=== PATIENT | male | born 1950 | race Caucasian/White ===

== ENCOUNTER → 2019-09-30 07:17 | Outpatient (CLI) | payer OTHER, SELFPAY ==
[2019-09-30 07:55] LABS: Add Manual Diff / Slide Review NO; Basophils Absolute Auto 0 /uL (0-100); Basophils Percent Auto 0.8 % (0-2); Eosinophils Absolute Auto 200 /uL (0-450); Hematocrit 46.7 % (41-53); Lymphocytes Absolute Auto 1600 /uL (1100-4500); Lymphocytes Percent Auto 28.1 % (25-40); Mean Corpuscular HGB Conc 34.4 % (30-36); Mean Corpuscular Hemoglobin 33.3 PG (26-34); Mean Corpuscular Volume 96.9 fL (80-100); Monocytes Absolute Auto 500 /uL (0-900); Monocytes Percent Auto 9.1 % (3-14); Neutrophils Absolute Auto 3400 /uL (1500-7000); Platelet Count 313 X10^3/uL (150-400); Red Blood Cell Count 4.82 X10^6/uL (4.5-5.9); Red Cell Distribution Width 13.4 % (11.6-14.8); White Blood Cell Count 5.8 X10^3/uL (4.5-11.0)
[2019-09-30 08:13] LABS: Alanine Aminotransferase 17 IU/L (<50); Albumin 4.3 g/dL (3.5-5.0); Albumin Globulin Ratio 1.5 (1.0-2.8); Alkaline Phosphatase 66 U/L (38-126); Aspartate Aminotransferase 25 IU/L (17-59); BUN Creatinine Ratio 15.7 (6-22); Bilirubin Total 1.4 mg/dL (0.2-1.3); Blood Urea Nitrogen 11 mg/dL (9-20); Calcium 9.3 mg/dL (8.4-10.2); Carbon Dioxide 30 mmol/L (22-32); Chloride 101 mmol/L (98-107); Cholesterol 184 mg/dL (140-199); Estimated Glomerular Filt Rate > 60.0 mL/min (>60); Globulin 2.8 g/dL (1.7-4.1); Glucose 111 mg/dL (80-110); HDL Cholesterol 49 mg/dL (40-60); HEMOLYSIS < 15 (0-50); LDL Cholesterol Calculated 116 mg/dL (<100); Sodium 140 mmol/L (137-145); Total Protein 7.1 g/dL (6.3-8.2); Triglycerides 96 mg/dL (35-150)
[2019-10-02 17:16] LABS: PSA Free % 8 % (calc) (> 25); PSA, Total 10.5 ng/mL (< 4.1)
== END ==
PROVIDERS: PCP Family Medicine; Visit Provider Family Medicine
DX: G62.9 Polyneuropathy, unspecified (principal)
CPT/HCPCS: 36415; 80053; 80061; 84153; 84154; 85025

== ENCOUNTER → 2020-09-05 07:31 | Outpatient (CLI) | payer MEDICARE, SELFPAY ==
[2020-09-05 08:52] LABS: Add Manual Diff / Slide Review NO; Basophils Absolute Auto 100 /uL (0-100); Basophils Percent Auto 0.8 % (0-2); Eosinophils Absolute Auto 100 /uL (0-450); Eosinophils Percent Auto 2.3 % (2-4); Hematocrit 51.2 % (41-53); Hemoglobin 17.1 g/dL (13.5-17.5); Lymphocytes Absolute Auto 1800 /uL (1100-4500); Lymphocytes Percent Auto 29.1 % (25-40); Mean Corpuscular HGB Conc 33.5 % (30-36); Mean Corpuscular Hemoglobin 32.2 PG (26-34); Monocytes Absolute Auto 500 /uL (0-900); Neutrophils Absolute Auto 3500 /uL (1500-7000); Neutrophils Percent Auto 58.8 % (50-75); Platelet Count 302 X10^3/uL (150-400); Red Blood Cell Count 5.33 X10^6/uL (4.5-5.9); Red Cell Distribution Width 12.8 % (11.6-14.8)
[2020-09-05 09:18] LABS: Alanine Aminotransferase 18 IU/L (<50); Albumin 4.3 g/dL (3.5-5.0); Albumin Globulin Ratio 1.4 (1.0-2.8); Alkaline Phosphatase 71 U/L (38-126); Aspartate Aminotransferase 26 IU/L (17-59); BUN Creatinine Ratio 16.9 (6-22); Bilirubin Total 1.7 mg/dL (0.2-1.3); Blood Urea Nitrogen 12 mg/dL (9-20); Calcium 9.8 mg/dL (8.4-10.2); Carbon Dioxide 34 mmol/L (22-32); Chloride 99 mmol/L (98-107); Cholesterol 189 mg/dL (140-199); Estimated Glomerular Filt Rate > 60.0 mL/min (>60); Glucose 96 mg/dL (80-110); HDL Cholesterol 53 mg/dL (40-60); HEMOLYSIS < 15 (0-50); LDL Cholesterol Calculated 120 mg/dL (<100); Potassium 4.2 mmol/L (3.4-5.1); Sodium 136 mmol/L (137-145); Total Protein 7.3 g/dL (6.3-8.2); Triglycerides 82 mg/dL (35-150)
--- NOTE | 2020-09-05 10:54 | DI.US.S_ITS ---
PROCEDURE: US ABDOMEN COMPLETE INDICATIONS: Abdominal pain TECHNIQUE: Real-time scanning was performed of the abdominal and retroperitoneal organs, with image documentation. COMPARISON: None. FINDINGS: Liver: Liver is normal in size and homogeneous in echotexture. Gallbladder: The gallbladder contains mobile presumed sludge balls, given absence of dense shadowing, best seen in the left lateral decubitus positioning and the largest of which measures 6 x 7 x 7 mm. Biliary ducts: Intrahepatic bile ducts are non-dilated. Extrahepatic bile duct caliber measures 4.9 mm. Normal is 6-7 mm or less in diameter, or 10 mm or less post-cholecystectomy. Pancreas: Visualized portions of the pancreas are sonographically normal. Spleen: Spleen is normal in size and homogeneous in echotexture. Kidneys: Kidneys are normal in size and echotexture. Right kidney measures 13.6 cm long; left kidney measures 11.5 cm long. No hydronephrosis or nephrolithiasis. No solid masses. Duplex right kidney collecting system. Aorta: Visualized aorta is normal in caliber at less than 3 cm. Iliacs: Proximal common iliac arteries are normal in caliber at less than 2.5 cm. IVC: Intrahepatic inferior vena cava is patent. Miscellaneous: No free abdominal fluid. IMPRESSION: Mobile presumed sludge balls within the gallbladder lumen, without evidence of acute cholecystitis or biliary obstruction. No alternative source of abdominal pain is identified. Dictated by: Gulshan Silva M.D. on 09/05/2020 at 11:46 Approved by: Gulshan Silva M.D. on 09/05/2020 at 11:48
[2020-09-06 07:08] LABS: PSA Free % 8.5 % (.); PSA, Total 8.2 ng/mL (0.0-4.0)
[2020-09-13 11:33] LABS: Urea Breath Test >18YRS NEGATIVE
== END ==
PROVIDERS: PCP Family Medicine; Referring Provider Family Medicine; Visit Provider Family Medicine
DX: R10.9 Unspecified abdominal pain (principal)
CPT/HCPCS: 36415; 76700; 80053; 80061; 83013; 84153; 84154; 85025

== ENCOUNTER → 2020-09-18 12:31 | Outpatient (CLI) | payer MEDICARE, SELFPAY ==
--- NOTE | 2020-09-18 12:33 | DI.MRI.S_ITS ---
PROCEDURE: MR PELIS WO/W CON INDICATIONS: Enlarged prostate TECHNIQUE: Coronal HASTE, axial T1 FSE with fat saturation, 3-plane nonbreath-hold T2 FSE. After the administration of contrast, dynamic axial, delayed axial and coronal VIBE or 2-D FLASH with fat saturation through the pelvis. Optional diffusion weighted imaging and ADC may be performed. COMPARISON: None. FINDINGS: Image quality: Diagnostic. Prostate: Gland size is 5.8 x 5.5 x 5.8 cm; ellipsoid gland volume is 96 mL. There is heterogeneous enlargement of the transitional zone. Multiple circumscribed nodules are demonstrated within the transitional zone compatible with BPH nodules. Lesion size(s): Lesion 1: Approximately 0.8 x 0.6 cm in the axial plane. Lesion location(s) (sector): Lesion 1: Right mid transitional zone at the level of the mid prostate. Lesion description: Lesion 1: There is an oval T2 hypointense lesion with indistinct and obscured margins. No evidence of extraprostatic extension. T2 weighted imaging (T2WI) morphology score: Lesion 1: 4 Diffusion weighted imaging (DWI) morphology score: Lesion 1: 3 Dynamic contrast enhancement (DCE): Lesion 1: Present. Lesion PI-RADS score: Lesion 1: PI-RADS 4 Genitourinary system: There is mild bladder wall thickening and trabeculation compatible sequelae of chronic bladder outlet obstruction. Distal ureters are non distended. Bowel and peritoneum: No pathologic free pelvic fluid. Inferior colon and small bowel loops are normal in caliber. There is colonic diverticulosis without acute diverticulitis demonstrated. Nodes and vessels: No pelvic or inguinal adenopathy by size criteria. Iliac vessels are normal in caliber. Soft tissues: No inguinal hernias. Bones: Marrow demonstrates normal overall signal, without suspicious lesions to suggest metastases. IMPRESSION: 1. Small PI-RADS 4 lesion demonstrated within the right transitional zone compatible with high likelihood of clinically significant prostate cancer. 2. No evidence of extraprostatic extension. No pelvic lymphadenopathy. Dictated by: Dixon Baig M.D. on 09/18/2020 at 16:57 Approved by: Dixon Baig M.D. on 09/18/2020 at 17:07
== END ==
PROVIDERS: PCP Family Medicine; Referring Provider Family Medicine; Visit Provider Family Medicine
DX: N40.1 Benign prostatic hyperplasia with lower urinary tract symptoms (principal); N13.8 Other obstructive and reflux uropathy; N32.89 Other specified disorders of bladder
CPT/HCPCS: 72197

== ENCOUNTER → 2021-10-24 09:47 | Outpatient (CLI) | payer MEDICARE, SELFPAY ==
[2021-10-24 11:18] LABS: COVID19 -Nasal RAPID Negative (Negative)
== END ==
PROVIDERS: PCP Internal Medicine; Visit Provider Surgery
DX: Z01.812 Encounter for preprocedural laboratory examination (principal); Z20.822 Contact with and (suspected) exposure to COVID-19
CPT/HCPCS: 87635; C9803

== ENCOUNTER 2021-10-25 07:39 | Day surgery (SDC) | payer MEDICARE, SELFPAY ==
[2021-10-25 07:57] VITALS: BP 148/96; PULSE 81; RESP 16; TEMP 37; O2SAT 98; BMI 22.9
[2021-10-25] MEDS: LACTATED RINGERS 1,000 ML 84 ML IV (08:17)
--- NOTE | 2021-10-25 08:35 | PM.HP.1 ---
History of Present Illness History of Present Illness Date Patient Seen: 10/25/21 Time Patient Seen: 08:35 Chief complaint: TNC Narrative: Zach had a colonoscopy in 2014 with removal of a few polyps. Was recommended to follow-up in 5 years. Patient History Medical History (Updated 01/30/21 @ 10:46 by Jose Maria Mckinley MD) Benign prostatic hyperplasia with urinary obstruction (05/21/16) Elevated PSA GERD without esophagitis H/O adenomatous polyp of colon Mass of left breast (08/10/14) Peripheral neuropathy (08/10/14) Seborrheic keratosis Surgical History (Updated 02/20/21 @ 20:47 by Migdalia Gomez) History of hernia repair (~1967) Family & Social History Family History (Updated 02/20/21 @ 20:48 by Migdalia Gomez) Brother Prostate cancer Father Brain tumor Social History: household members significant other Tobacco & Substance use: Smoking Status Never smoker alcohol intake current Substance Use Type does not use Meds Home Medications and Allergies Home Medications Medication Instructions Recorded Confirmed Type [VITAMIN C] Q DAY #0 11/19/11 01/30/21 History [VITAMIN E] QDAY #0 11/19/11 01/30/21 History lycopene 10 mg capsule 10 mg PO DAILY #90 cap 09/04/20 01/30/21 Rx tamsulosin 0.4 mg capsule 0.4 mg PO DAILY #90 cap 10/03/21 Rx Allergies Allergy/AdvReac Type Severity Reaction Status Date / Time No Known Drug Allergies Allergy Verified 10/25/21 07:55 Exam Vital Signs (past 8 hours): - 10/25/21 07:57 Temperature 98.6 F Pulse Rate 81 Respiratory Rate 16 Blood Pressure 148/96 H Pulse Oximetry 98 Oxygen Delivery Method Room Air Const General: healthy appearing Resp Effort & Inspection: normal respiratory effort Assessment & Plan Assessment and plan (1) H/O adenomatous polyp of colon: Status: Inactive Plan Colonoscopy risks and benefits reviewed. He would like to proceed COVID-19 COVID-19 status: Negative Result date/Date tested (Pos, Neg/Pending): 10/24/21 Time Spent With Patient Critical Care time: I spent a total of [] minutes of critical care time on this patient's care today; this time is exclusive of procedural time.
[2021-10-25] MEDS: fentaNYL 250 MCG/5 ML INJ IV (09:13)
[2021-10-25] MEDS: MIDAZOLAM 5 MG/5 ML VIAL IV (09:14)
--- NOTE | 2021-10-25 09:16 | PM.OP.COLON ---
Operative Date/Time/Diagnoses Date of procedure: 10/25/21 Time of procedure: 09:16 Pre-op diagnosis: History of colon polyps Post-op diagnosis: same Procedure & Clinicians Study performed: Colonoscopy Same procedure as scheduled: Yes Indications: History of colon polyps Surgeon: Keith Mcgill Procedure Notes SCOAP/Timeout: Yes Procedure in detail: Procedure: The patient was brought to the endoscopy suite, placed in left lateral decubitus position. The patient was connected to monitoring devices. A time-out was performed. Sedation was administered. Once the patient was adequately sedated, a digital rectal exam was performed and was normal. The scope was then inserted and advanced to the cecum where the appendiceal orifice was identified and photographed. The scope was then slowly withdrawn over greater than 6 minutes. Mucosa was thoroughly inspected. No polyps were noted. The scope was retroflexed in the rectum and no abnormalities were noted. The was straightened and removed. The patient was awakened and brought to recovery. Versed: 6 mg Fentanyl: 100 mcg EBL: 0 Findings: No polyps Scope withdrawal time: 9 Sedation minutes: 27 Post-procedure Recommendations: Colonoscopy in 10 years Disposition: PACU
[2021-10-25 09:19] VITALS: BP 124/84; PULSE 62; RESP 12; TEMP 36.4; O2SAT 95
[2021-10-25 09:24] VITALS: BP 120/79; PULSE 58; RESP 12; O2SAT 95
[2021-10-25 09:29] VITALS: BP 120/80; PULSE 558; RESP 14; O2SAT 95
[2021-10-25 09:34] VITALS: BP 153/88; PULSE 66; RESP 12; TEMP 36.4; O2SAT 96
[2021-10-25 09:40] VITALS: BP 144/92; PULSE 63; RESP 16; TEMP 36.9; O2SAT 95
== END 2021-10-25 09:53 | disposition home or self-care (01) ==
PROVIDERS: PCP Internal Medicine; Referring Provider Surgery; Visit Provider Surgery
PROC: 0DJD8ZZ Inspection of Lower Intestinal Tract, Via Natural or Artificial Opening Endoscopic (ICD-10-PCS; CPT 45378; principal; 2021-10-25 08:30)
DX: Z12.11 Encounter for screening for malignant neoplasm of colon (principal); Z86.010 Personal history of colon polyps
CPT/HCPCS: G0105; 99152; J2250; J3010

== ENCOUNTER → 2022-04-16 11:10 | Outpatient (CLI) | payer MEDICARE, SELFPAY ==
--- NOTE | 2022-04-16 11:13 | DI.RAD.S_ITS ---
PROCEDURE: XR FOREARM LT 2V INDICATIONS: fall TECHNIQUE: 2 views of the forearm were acquired. COMPARISON: None. FINDINGS: Bones: Comminuted distal radial metaphyseal fracture with intra-articular extension and dorsal angulation noted. Normal bone mineralization present. Ulna appears intact. Soft tissues: No suspicious soft tissue calcifications or masses. IMPRESSION: Comminuted intra-articular distal radial fracture with dorsal angulation Approved by: Jf Arroyo M.D. on 04/16/2022 at 11:14
--- NOTE | 2022-04-16 11:13 | DI.RAD.S_ITS ---
PROCEDURE: XR WRIST LT MIN 3V INDICATIONS: fall TECHNIQUE: 4 views of the wrist were acquired. COMPARISON: None. FINDINGS: Bones: Comminuted distal radial metaphyseal fracture is present with extension into the radiocarpal joint space. With dorsal angulation of distal fracture fragment noted. Scaphoid view is unremarkable Soft tissues: No suspicious soft tissue calcifications. IMPRESSION: 1. Comminuted intra-articular distal radial fracture with dorsal angulation Approved by: Jf Arroyo M.D. on 04/16/2022 at 11:18
== END ==
PROVIDERS: PCP Internal Medicine; Referring Provider Nurse Practitioner Family; Visit Provider Nurse Practitioner Family
DX: M25.432 Effusion, left wrist; S52.572A Other intraarticular fracture of lower end of left radius, initial encounter for closed fracture; M79.89 Other specified soft tissue disorders; W19.XXXA Unspecified fall, initial encounter
CPT/HCPCS: 73090; 73110

== ENCOUNTER 2022-04-16 15:26 | Emergency (ER) | payer MEDICARE, SELFPAY ==
[2022-04-16 16:01] VITALS: BP 161/74; PULSE 70; RESP 16; TEMP 36.6; O2SAT 98; BMI 22.9
[2022-04-16] MEDS: ACETAMINOPHEN 325 MG TABLET 975 MG PO (17:25)
--- NOTE | 2022-04-16 17:42 | DI.RAD.S_ITS ---
PROCEDURE: XR WRIST LT 2V INDICATIONS: post reduction film, colles' fx TECHNIQUE: 2 views of the wrist were acquired. COMPARISON: [facility], CR, XR WRIST LT MIN 3V, 04/16/2022, 11:12. FINDINGS: Bones: Fiberglass splint is present, which obscures fine bony detail. Comminuted intra-articular distal radial fracture is redemonstrated with mildly improved alignment. There is residual dorsal tilting of the distal radial articular surface. A mildly displaced ulnar styloid tip fracture is also seen. Soft tissues: No suspicious soft tissue calcifications. IMPRESSION: Status post reduction of the comminuted intra-articular distal radial fracture with improved alignment. Mildly displaced ulnar styloid tip fracture redemonstrated Dictated by: Jose Roberto Haley M.D. on 04/16/2022 at 18:02 Approved by: Jose Roberto Haley M.D. on 04/16/2022 at 18:04
--- NOTE | 2022-04-16 17:43 | ED_ITS ---
HPI - Extremity Injury (Upper) <ARUNA Graham - Last Filed: 04/16/22 19:05> General Chief Complaint: Extremity Injury, Upper Stated Complaint: sent by MD for change of cast on left arm Time Seen by Provider: 04/16/22 15:49 Mode of arrival: Family Vehicle History of Present Illness HPI narrative: This is a 72-year-old male who presents to the emergency department after a fall last night with injury to his left wrist. Patient reports that he went to the walk-in clinic, they called and sent him to the emergency department after consultation Orthopedics for his closed left distal radial fracture with dorsal angulation. Dr. Reyes was consulted by the walk-in clinic who recommends patient go to the emergency department for reduction of his Colles fracture and follow-up in the orthopedic clinic in one week. Patient denies any new sensation changes, has full range of motion of his fingers, complains of wrist pain and swelling, states that he took Tylenol earlier for his pain, declined wanting anything stronger at this time. Related Data Home Medications Medication Instructions Recorded Confirmed [VITAMIN C] Q DAY ##0 11/19/11 04/16/22 [VITAMIN E] QDAY ##0 11/19/11 04/16/22 Previous Rx's Medication Instructions Recorded lycopene 10 mg capsule 10 mg PO DAILY #90 caps 09/04/20 tamsulosin 0.4 mg capsule 0.4 mg PO DAILY #90 caps 01/14/22 Allergies Allergy/AdvReac Type Severity Reaction Status Date / Time No Known Drug Allergies Allergy Verified 04/16/22 16:04 Review of Systems <ARUNA Graham - Last Filed: 04/16/22 19:05> Review of Systems Narrative: General: denies fever, chills Head/Neck: denies headache, neck pain Eyes: denies visual changes, eye pain Cardio: denies chest pain, palpitations Respiratory: denies shortness of breath, cough MSK: Endorses fall with wrist fracture happened last night, he endorses pain and swelling but denies any numbness or tingling, worsening pain Skin: denies rash, itching or wound Neuro: denies numbness, tingling, dizziness Patient History <ARUNA Graham - Last Filed: 04/16/22 19:05> Medical History Benign prostatic hyperplasia with urinary obstruction (05/21/16) Elevated PSA GERD without esophagitis H/O adenomatous polyp of colon Mass of left breast (08/10/14) Peripheral neuropathy (08/10/14) Seborrheic keratosis Surgical History History of hernia repair (~1968) Family History Brother Prostate cancer Father Brain tumor Social History household members: significant other Smoking Status: Never smoker alcohol intake: current Smoking Status: Never smoker Substance Use Type: does not use Exam <ARUNA Graham - Last Filed: 04/16/22 19:05> Narrative Exam Narrative: Independently reviewed vitals signs and nursing notes. General: Awake, alert, nontoxic, no cardiorespiratory distress Head/Neck: Atraumatic, neck supple Eyes: EOMI, conjunctiva normal Nose: nares patent, no rhinorrhea Mouth/Throat: moist mucus membranes, posterior pharynx without erythema or lesion Cardio: Regular rate and rhythm, no peripheral edema MSK: Moves all extremities, neurovascularly intact, range of motion without deficit, left arm in splint, this was removed, obvious deformity of his left wrist with dorsal angulation. Moderate amount of swelling, radial pulse is palpable, 2+, brisk cap refill Skin: Normal capillary refill, no rash Neuro: Normal speech and cognition, normal gait Initial Vital Signs Initial Vital Signs: Vital Signs Temperature 97.8 F 04/16/22 16:01 Pulse Rate 70 04/16/22 16:01 Respiratory Rate 16 04/16/22 16:01 Blood Pressure 161/74 H 04/16/22 16:01 Pulse Oximetry 98 04/16/22 16:01 Oxygen Delivery Method 04/16/22 16:01 <Tessa Caldwell DO - Last Filed: 04/18/22 13:10> Initial Vital Signs Initial Vital Signs: Vital Signs Temperature 97.8 F 04/16/22 16:01 Pulse Rate 70 04/16/22 16:01 Respiratory Rate 16 04/16/22 16:01 Blood Pressure 161/74 H 04/16/22 16:01 Pulse Oximetry 98 04/16/22 16:01 Oxygen Delivery Method 04/16/22 16:01 Procedures <ARUNA Graham - Last Filed: 04/16/22 19:05> Orthopedic Joint Reduction Joint #1: Time Out Performed: Yes Side: left Joint Reduction Location: wrist Analgesia: hematoma block Local Anesthesia: lidocaine 2% Amount of anesthesic used (mL): 10 Technique used: traction/counter-traction Post-reduction neuro exam: intact and no change Post-reduction vascular: intact and no change Post Reduction X-Ray Obtained: Yes Post Reduction X-Ray Results: reduced Splint Applied: Yes Patient Tolerated Procedure: Well Orthopedic Splinting/Casting Injury #1: Side: left Upper Extremity Injury Location: wrist Upper Extremity Immobilizer: sling/shoulder immobilizer and sugar tong splint Post splinting neuro exam: intact and no change Post splinting vascular exam: intact Placed by: Provider Course <ARUNA Graham - Last Filed: 04/16/22 19:05> Orders Ordered: Discontinued Medications Acetaminophen (Acetaminophen 325 Mg Tablet) 975 mg PO NOW ONE Stop: 04/16/22 17:18 Last Admin: 04/16/22 17:25 Dose: 975 mg Documented By: SUE Ibuprofen (Ibuprofen 400 Mg Tablet) 600 mg PO NOW ONE Stop: 04/16/22 17:44 Last Admin: 04/16/22 17:46 Dose: 600 mg Documented By: SUE Lidocaine HCl (Lidocaine 1% (Pf)) 8 ml INJ NOW ONE Stop: 04/16/22 17:03 Last Admin: 04/16/22 17:48 Dose: 8 ml Documented By: SUE Oxycodone/Acetaminophen (Oxycodone/Acetaminophen 5/325 Tablet) 1 tab PO NOW ONE Stop: 04/16/22 15:50 Last Admin: 04/16/22 16:36 Dose: Not Given Documented By: SUE Vital Signs Vital signs: Vital Signs - 8 hr 04/16/22 16:01 Temperature 97.8 F Pulse Rate 70 Respiratory Rate 16 Blood Pressure 161/74 H Pulse Oximetry 98 Oxygen Delivery Method Room Air <Tessa Caldwell DO - Last Filed: 04/18/22 13:10> Orders Ordered: Discontinued Medications Acetaminophen (Acetaminophen 325 Mg Tablet) 975 mg PO NOW ONE Stop: 04/16/22 17:18 Last Admin: 04/16/22 17:25 Dose: 975 mg Documented By: MLM Ibuprofen (Ibuprofen 400 Mg Tablet) 600 mg PO NOW ONE Stop: 04/16/22 17:44 Last Admin: 04/16/22 17:46 Dose: 600 mg Documented By: MLM Lidocaine HCl (Lidocaine 1% (Pf)) 8 ml INJ NOW ONE Stop: 04/16/22 17:03 Last Admin: 04/16/22 17:48 Dose: 8 ml Documented By: MLM Oxycodone/Acetaminophen (Oxycodone/Acetaminophen 5/325 Tablet) 1 tab PO NOW ONE Stop: 04/16/22 15:50 Last Admin: 04/16/22 16:36 Dose: Not Given Documented By: MLGaviota Vital Signs Vital signs: Vital Signs - 8 hr 04/16/22 16:01 Temperature 97.8 F Pulse Rate 70 Respiratory Rate 16 Blood Pressure 161/74 H Pulse Oximetry 98 Oxygen Delivery Method Room Air MDM - Extremity Injury (Upper) <Vanessa Mendez [facility] - Last Filed: 04/16/22 19:05> Imaging Data Post reduction lt wrist xr: Radiologist's Impression: PROCEDURE:? XR WRIST LT 2V ? INDICATIONS: post reduction film, katia' fx ? TECHNIQUE:? 2 views of the wrist were acquired.? ? COMPARISON:? [facility], CR, XR WRIST LT MIN 3V, 04/16/2022, 11:12. ? FINDINGS:? ? Bones:? Fiberglass splint is present, which obscures fine bony detail.? Comminuted intra-articular distal radial fracture is redemonstrated with mildly improved alignment.? There is residual dorsal tilting of the distal radial articular surface.? A mildly displaced ulnar styloid tip fracture is also seen. ? Soft tissues:? No suspicious soft tissue calcifications.? ? IMPRESSION:? Status post reduction of the comminuted intra-articular distal radial fracture with improved alignment.? Mildly displaced ulnar styloid tip fracture redemonstrated ? ? Dictated by: Jose Roberto Haley M.D. on 04/16/2022 at 18:02 ? ? Approved by: Jose Roberto Haley M.D. on 04/16/2022 at 18:04 ? Lt wrist : Radiologist's Impression: PROCEDURE:? XR WRIST LT MIN 3V ? INDICATIONS: fall ? TECHNIQUE:? 4 views of the wrist were acquired.? ? COMPARISON:? None. ? FINDINGS:? ? Bones:? Comminuted distal radial metaphyseal fracture is present with extension into the radiocarpal joint space.? With dorsal angulation of distal fracture fragment noted.? Scaphoid view is unremarkable ? Soft tissues:? No suspicious soft tissue calcifications.? ? IMPRESSION:? ? 1. Comminuted intra-articular distal radial fracture with dorsal angulation ? ? ? Approved by: Jf Arroyo M.D. on 04/16/2022 at 11:18? MDM Narrative Medical decision making narrative: This is a right-handed 72-year-old male who presents to the emergency department after he was called by the walk-in clinic provider after he was seen in the walk-in clinic and discharged home with a closed, neurovascularly intact, comm inuted intra-articular distal radial fracture with dorsal angulation with an associated styloid fracture his left ulna. Dr. Reyes was consulted by the walk-in clinic provider who recommends patient come back to the emergency department for fracture reduction and splinting and patient can follow-up in them clinic next week. Patient has full sensation and range of motion of his fingertips, radial pulses 2+ and palpable, ecchymosis and edema present over his wrist. A referral for Dr. Reyes was placed. A hematoma block was performed by Dr. Caldwell and fracture reduction was also completed by her with my assistance. Post reduction film is attached, shows post reduction of the comminuted intra-articular distal radial fracture with improved alignment and a mildly displaced ulnar styloid tip fracture is redemonstrated. His pain was under control with Tylenol. He was splinted with 4 in ortho glass in in a stirrup splint and placed in a sling, adequate padding was used over the wrist and elbow. Patient is encouraged to continue to elevate, ice, take ibuprofen and Tylenol as needed for his pain, he was given strict return precautions for any sensation changes, pain out of proportion or other concerning symptoms. He understands to follow-up in one week with Orthopedics. Patient is appropriate and amenable to discharge home. Vital signs are stable on repeat examination is unremarkable. Patient has been informed of results. Patient has been given strict return to ER precautions for any new or worsening symptoms. Patient understands to follow up closely with outpatient providers as instructed. Patient understands plan and agrees to discharge home. All questions and concerns answered at this time. Discharge Plan Departure Patient Disposition: Home Clinical Impression: Colles' fracture Qualifiers: Encounter type: initial encounter Fracture type: closed Laterality: left Qualified Code(s): S52.532A - Colles' fracture of left radius, initial encounter for closed fracture Instructions: DI for Distal Radius Fracture Activity Restrictions/Additional Instructions: *You have been diagnosed with a left distal radius fracture, also called a Colles' fracture. Please use ice over the painful area 20 minutes, three or 4 times daily, keep it elevated, take ibuprofen and/or Tylenol as needed for your pain. Follow-up with Dr. Reyes or other orthopedist in one week. They might call you or you can call them and schedule an appointment tomorrow morning. Please use your sling to help support your arm because it is heavier than it used to be. Please return to the emergency department if your pain becomes unbearable, if your fingers are numb and tingly, or if you have other new pain that you do not have today. Your fracture angulation is much improved after it was reduced today, I hope you heal quickly and feel better soon. *What to do: *Please continue to take your regular medications as directed. [ ] New medication prescriptions sent to your pharmacy: [ ] [ ] New medication written as a paper prescription [x] No new medications given *Please follow up with your primary care provider in 2-3 days, call for an appointment. Let them know you were seen in the Emergency Department and that we asked that you be seen for follow-up. We will electronically transmit a record of today's note if your PCP is in our system *If you do not have a primary care provider please contact [phone] to establish care with one of the [facility] primary care providers. *Return to Emergency Department if you should have any new, worsening or concerning symptoms, such as [fever greater than 101F, chills, worsening pain, persistent vomiting or other bothersome symptoms] Prescriptions: No Action [VITAMIN C] Q DAY Qty: 0 [VITAMIN E] QDAY Qty: 0 tamsulosin 0.4 mg capsule 0.4 mg PO DAILY Qty: 90 0RF Rx Instructions: APPT DUE W/PCP PRIOR TO END OF THIS RX/FUTURE FILLS. PLEASE CALL TO SCHEDULE APPT. THANKS 01/14/22 lycopene 10 mg capsule 10 mg PO DAILY Qty: 90 3RF Referrals: Reyna Herr MD [Physician] - Jose Maria Mckinley MD [Primary Care Provider] - Visit Report Forms: Patient Portal/API <Tessa Caldwell DO - Last Filed: 04/18/22 13:10> Cosign ED Attending Meaghanature Attestation: I was immediately available in the department for consultation. Documentation has been reviewed. I agree with assessment and plan.
[2022-04-16] MEDS: IBUPROFEN 400 MG TABLET 600 MG PO (17:46)
[2022-04-16] MEDS: LIDOCAINE 1% (PF) 8 ML INJ (17:48)
--- NOTE | 2022-04-16 18:13 | PC.NURSE ---
After splint was placed pt had some delayed cap refill and numbness to fingers. Hugo wrap on splint was loosened and re wrapped. Pt has feeling and good color in his fingers post rewrap.
== END 2022-04-16 18:21 | disposition home or self-care (01) ==
PROVIDERS: Emergency Provider Nurse Practitioner Critical Care Medicine; PCP Internal Medicine; Referring Provider Orthopaedic Surgery Foot and Ankle Surgery
DX: S52.532A Colles' fracture of left radius, initial encounter for closed fracture (principal); W19.XXXA Unspecified fall, initial encounter; M25.432 Effusion, left wrist; M79.89 Other specified soft tissue disorders
CPT/HCPCS: 25605; 29105; 73090; 73100; 73110; 99284

== ENCOUNTER → 2024-04-07 14:34 | Outpatient (CLI) | payer MEDICARE, SELFPAY ==
--- NOTE | 2024-04-07 14:35 | DI.US.S_ITS ---
PROCEDURE: US ABDOMEN LIMITED INDICATIONS: CONCERN FOR LEFT INGUINAL HERNIA TECHNIQUE: Real-time focused scanning was performed of the inguinal region, with image documentation. COMPARISON: [facility], , US ABDOMEN COMPLETE, 09/05/2020, 11:07. FINDINGS: Small left inguinal hernia noted with 9 mm fascial defect and hernia sac measuring 2.1 x 0.9 x 1.0 cm hernia sac containing bowel. No evidence of incarceration IMPRESSION: Reducible left inguinal hernia containing bowel Approved by: Jf Arroyo M.D. on 04/07/2024 at 19:32
== END ==
PROVIDERS: PCP Family Medicine; Referring Provider Family Medicine; Visit Provider Family Medicine
DX: K40.91 Unilateral inguinal hernia, without obstruction or gangrene, recurrent (principal)
CPT/HCPCS: 76705

== ENCOUNTER 2024-10-07 08:10 | Observation (INO) | payer MEDICARE, SELFPAY ==
[2024-10-07] VITALS (12 sets, daily range): BP systolic 122–176; BP diastolic 77–116; PULSE 64–88; RESP 14–18; TEMP 36.1–36.6; O2SAT 92–99; BMI 25.5; BMI 24.4
--- NOTE | 2024-10-07 08:35 | ED_ITS ---
HPI - General Adult General Chief complaint: Abdominal Pain Stated complaint: per pt kidney stones needs CT Time Seen by Provider: 10/07/24 08:16 Source: patient Mode of arrival: Ambulatory History of Present Illness HPI narrative: 74-year-old gentleman with a history of BPH with LUTS, reflux, peripheral neuropathy, prior history kidney stones constipation, seen by his primary care physician on October 01 with severe right-sided flank pain. Outpatient CT scan was ordered, patient presents today complaining of severe pain in the right side. He notes that he has been having intermittent abdominal pain since of this year. He complains that he has gained almost 20 lb and developed a new bulge in his lower abdomen that had not been present previously. Since seeing his primary care physician on the he states that his pain has worsened he has had 3 episodes of syncope secondary to pain, persistent vomiting, pain continues to be uncontrolled and he presents to the emergency department for further evaluation. He has not describing fevers he states that he has not had a bowel movement for a number of days despite using MiraLax he also has been essentially eating nothing but clear liquids since . Related Data Home Medications Medication Instructions Recorded Confirmed [VITAMIN C] Q DAY ##0 11/19/11 10/01/24 [VITAMIN E] QDAY ##0 11/19/11 10/01/24 Previous Rx's Medication Instructions Recorded tamsulosin 0.4 mg capsule 0.4 mg PO BID #180 caps 01/14/24 Allergies Allergy/AdvReac Type Severity Reaction Status Date / Time No Known Drug Allergies Allergy Verified 10/07/24 08:24 Review of Systems Review of Systems Narrative: Pertinent positive and negative findings as per HPI Patient History Medical History Constipation Weight gain Kidney stone on right side H/O adenomatous polyp of colon GERD without esophagitis Elevated PSA Seborrheic keratosis Benign prostatic hyperplasia with urinary obstruction (05/21/16) Peripheral neuropathy (08/10/14) Mass of left breast (08/10/14) Surgical History History of hernia repair (~1967) Family History Brother Prostate cancer Father Brain tumor Social History (Updated 09/24/23 @ 13:03 by Alayna Puga MA) marital status: unmarried,single household members: significant other pets and animals: Yes occupational status: previously employed Smoking Status: Never smoker alcohol intake: never substance use type: does not use Smoking Status: Never smoker Exam Initial Vital Signs Initial Vital Signs: Vital Signs Temperature 97.5 F L 10/07/24 08:21 Pulse Rate 83 10/07/24 08:21 Respiratory Rate 14 10/07/24 08:21 Blood Pressure 176/97 H 10/07/24 08:21 Pulse Oximetry 99 10/07/24 08:21 Oxygen Delivery Method Room Air 10/07/24 08:21 General: Healthy appearing, appears uncomfortable but not toxic Able to give a complete and coherent history. HEENT: Moist mucous membranes, normal sclera with reactive pupils, Respiratory: Lungs are clear to auscultation, no wheezing no rales no rhonchi. Full and symmetrical air movement Cardiac: Regular rate and rhythm no murmurs no bruits Abdomen: Soft, he has a fullness throughout the entire lower abdomen more to the right inferior portion of the umbilicus, does not have flank pain on palpation Skin: Warm and dry, no rashes Neurologic: Grossly neurologically intact with no obvious asymmetries or abnormalities Extremities: No trauma, well perfused Psych: Cooperative, appropriate insight and affect Course Orders Ordered: Hydromorphone HCl (Hydromorphone 0.5 Mg Inj) 0.5 mg IV Q15MIN PRN PRN Reason: Pain, Last Admin: 10/07/24 08:54 Dose: 0.5 mg Documented By: ANALY Lactated Ringer's (Lactated Ringers) 1,000 mls @ 100 mls/hr IV CONT MELANIE Last Admin: 10/07/24 13:22 Dose: 100 mls/hr Documented By: CLAUDIA Ondansetron HCl (Ondansetron 4 Mg/2 Ml Inj) 4 mg IV NOW PRN PRN Reason: Nausea And Vomiting Last Admin: 10/07/24 08:54 Dose: 4 mg Documented By: ANALY Ondansetron HCl (Ondansetron 4 Mg Odt) 4 mg PO NOW PRN PRN Reason: Nausea And Vomiting Tamsulosin HCl (Tamsulosin 0.4 Mg Capsule) 0.4 mg PO BID [facility] Discontinued Medications Acetaminophen (Acetaminophen 325 Mg Tablet) 650 mg PO Q4H PRN PRN Reason: Pain, Mild (1-3) Fentanyl (Fentanyl 100 Mcg/2 Ml Inj) 0 mcg IV Q5MIN PRN PRN Reason: Pain, Severe (7-10) Fentanyl (Fentanyl 100 Mcg/2 Ml Inj) 0 mcg IV Q5M PRN PRN Reason: Pain, Moderate (4-6) Fentanyl (Fentanyl 100 Mcg/2 Ml Inj) 0 mcg IV Q5M PRN PRN Reason: Pain, Severe (7-10) Hydromorphone HCl (Hydromorphone 1 Mg Inj) 0 mg IV Q5MIN PRN PRN Reason: Pain, Mild (1-3) Hydromorphone HCl (Hydromorphone 1 Mg Inj) 0 mg IV Q5MIN PRN PRN Reason: Pain, Moderate (4-6) Hydromorphone HCl (Hydromorphone 1 Mg Inj) 0 mg IV Q5MIN PRN PRN Reason: Pain, Severe (7-10) Hydromorphone HCl (Hydromorphone 0.5 Mg Inj) 0.5 mg IV Q2H PRN PRN Reason: Breakthrough Pain Hydroxyzine HCl (Hydroxyzine 50 Mg/Ml Inj) 25 mg IM NOW PRN PRN Reason: Pain, Mild (1-3) Cefazolin Sodium 2 gm/ Sodium (Chloride) 100 mls @ 200 mls/hr IV NOW ONE Stop: 10/07/24 12:01 Last Admin: 10/07/24 15:55 Dose: Not Given Documented By: LLOYD Cefazolin Sodium/Dextrose (Ancef) 100 mls @ 200 mls/hr IV NOW ONE Stop: 10/07/24 12:14 Last Infusion: 10/07/24 12:31 Dose: Infused Documented By: Admin: 10/07/24 12:01 Dose: 200 mls/hr Documented By: TEREZA Ketorolac Tromethamine (Ketorolac 30 Mg/Ml Vial) 15 mg IV NOW ONE Stop: 10/07/24 10:38 Last Admin: 10/07/24 10:40 Dose: 15 mg Documented By: ANALY Naloxone HCl (Naloxone 0.4 Mg/Ml Vial) 0.2 mg IV Q2MIN PRN PRN Reason: Opiate Reversal Ondansetron HCl (Ondansetron 4 Mg/2 Ml Inj) 4 mg IV NOW PRN PRN Reason: Nausea And Vomiting Oxycodone HCl (Oxycodone Ir 5 Mg Tablet) 5 mg PO [place] PRN PRN Reason: Mild or moderate pain Oxycodone HCl (Oxycodone Ir 5 Mg Tablet) 5 mg PO Q4H PRN PRN Reason: Pain, Moderate (4-6) Oxycodone HCl (Oxycodone Ir 10 Mg Tablet) 10 mg PO Q4HR PRN PRN Reason: Pain, Severe (7-10) Tamsulosin HCl (Tamsulosin 0.4 Mg Capsule) 0.4 mg PO DAILY MELANIE Vital Signs Vital signs: Vital Signs - 8 hr 10/07/24 13:12 10/07/24 14:40 10/07/24 14:45 Temperature 97.7 F 97.0 F L 97.2 F L Pulse Rate 72 84 88 Respiratory Rate 15 16 16 Blood Pressure 174/87 H 154/89 H 155/91 H Pulse Oximetry 98 98 98 Oxygen Delivery Method Room Air Room Air Room Air Oxygen Flow Rate 10/07/24 14:50 10/07/24 14:56 10/07/24 15:40 Temperature 97.1 F L 97.5 F L 97.4 F L Pulse Rate 87 86 81 Respiratory Rate 16 15 18 Blood Pressure 153/89 H 162/77 H 163/116 H Pulse Oximetry 94 96 95 Oxygen Delivery Method Room Air Room Air Oxygen Flow Rate 0 Medical Decision Making Lab Data 10/07/24 08:46 10/07/24 08:46 Labs: Lab Results 10/07/24 10/07/24 Range/Units 08:35 08:46 WBC 15.7 H (4.5-11.0) X10^3/uL RBC 5.20 (4.5-5.9) X10^6/uL Hgb 17.0 (13.5-17.5) g/dL Hct 50.2 (41-53) % MCV 96.4 (80-100) fL MCH 32.7 (26-34) PG MCHC 34.0 (30-36) % RDW 12.6 (11.6-14.8) % Plt Count 401 H (150-400) X10^3/uL Neut % (Auto) 85.7 H (50-75) % Lymph % (Auto) 6.2 L (25-40) % [place] % (Auto) 7.5 (3-14) % Eos % (Auto) 0.1 L (2-4) % Baso % (Auto) 0.5 (0-2) % Neut # (Auto) 22080 H (9621-3870) /uL Lymph # (Auto) 1000 L (3561-8212) /uL [place] # (Auto) 1200 H (0-900) /uL Eos # (Auto) 0 (0-450) /uL Baso # (Auto) 100 (0-100) /uL Sodium 138 (137-145) mmol/L Potassium 3.7 (3.4-5.1) mmol/L Chloride 99 (98-107) mmol/L Carbon Dioxide 27 (22-32) mmol/L BUN 28 H (9-20) mg/dL Creatinine 1.09 (0.66-1.25) mg/dL Estimated GFR > 60 (>60) mL/min BUN/Creatinine Ratio 25.7 H (6-22) Glucose 118 H (80-110) mg/dL Calcium 9.9 (8.4-10.2) mg/dL Total Bilirubin 2.0 H (0.2-1.3) mg/dL AST 27 (17-59) IU/L ALT 25 (<50) IU/L Alkaline Phosphatase 77 (38-126) U/L Total Creatine Kinase 61 (55-170) U/L Troponin I < 0.012 (0.01-0.034) ng/mL Total Protein 7.5 (6.3-8.2) g/dL Albumin 4.5 (3.5-5.0) g/dL Globulin 3.0 (1.7-4.1) g/dL Albumin/Globulin Ratio 1.5 (1.0-2.8) Lipase 185 (23-300) U/L Urine RBC 10-30/hpf H (0-5/HPF) Urine WBC 0-1/hpf (0-5/HPF) Ur Squamous Epith Cells None seen (0-5/HPF) Urine Bacteria Occasional (0-1) (None) Urine Mucus 1+ H (Negative) Ur Culture Indicated? Cult not indicated Vol Urine Centrifuged 10ml (spun) Urine Dip Bedside Urine Glucose Negative Bedside Urine Bilirubin - Negative Bedside Urine Ketone ++ 40 Urine Specific [place] 1.015 Bedside Urine Occult Blood +++ Bedside Urine pH 6 Bedside Urine Protein +/- 15 Bedside Urine Urobilinogen - Negative Bedside Urine Nitrite - Negative Bedside Urine Leukocytes - Negative Esterase Point of care testing: Urine Dip Bedside Urine Glucose Negative Bedside Urine Bilirubin - Negative Bedside Urine Ketone ++ 40 Urine Specific [place] 1.015 Bedside Urine Occult Blood +++ Bedside Urine pH 6 Bedside Urine Protein +/- 15 Bedside Urine Urobilinogen - Negative Bedside Urine Nitrite - Negative Bedside Urine Leukocytes - Negative Esterase Imaging Data CT scan - abdomen/pelvis: Radiologist's Impression: PROCEDURE: CT ABDOMEN PELVIS W CON INDICATIONS: abdominal pain TECHNIQUE: After the administration of intravenous contrast, axial sections acquired from the lung bases to the pubic symphysis. Coronal and sagittal reformats were performed. For radiation dose reduction, the following was used: automated exposure control, adjustment of mA and/or kV according to patient size. COMPARISON: [facility], , [place] ABDOMEN LIMITED, 04/07/2024, 15:05. FINDINGS: Image quality: Diagnostic Lower chest: Basal atelectasis. Moderate distal esophageal wall thickening and small hiatal hernia. Overall normal heart size. Suspected coronary calcifications. Small pericardial effusion. Liver: Possible hepatic steatosis. Gallbladder and biliary system: Unremarkable. Biliary system measures 7 mm, which is the upper limit of normal. Pancreas: No ductal dilation Spleen: Nonenlarged Adrenals: No discrete nodules Kidneys: Moderate to large right hydronephrosis. Along the anterior pararenal fascia, there is a thin fluid collection measuring 5 x 1.3 cm. Delayed right nephrogram. Urothelial thickening is seen along the course of the ureter. No left hydronephrosis. In the right mid ureter, there is an 8 x 7 mm calcified stone. Vessels and lymph nodes: The main portal vein is patent. No abdominal aortic aneurysm. No pathologic lymph nodes by size criteria. Bowel and peritoneum: The appendix is nondilated. No small bowel obstruction. Colonic diverticula are seen. No drainable ascites. Body wall: Unremarkable Pelvis: Heterogeneous enlarged prostate. Markedly distended bladder. Bones: There are degenerative changes. IMPRESSION: Moderate to large right hydronephrosis and urothelial thickening. Correlate urinalysis for any superimposed infection. 8 x 7 mm right mid ureter calcified stone. The bladder is markedly distended. Delayed right nephrogram indicates obstructive uropathy. There is a thin fluid collection anterior to the right kidney along the anterior pararenal fascia, sterility indeterminate. Differential includes a urinoma such as from forniceal rupture. Enlarged heterogeneously enhancing prostate, consider PSA correlation. Urologic follow-up is suggested for the above findings. The appendix is nondilated. No small bowel obstruction. Moderate esophageal wall thickening possibly esophagitis, endoscopy could further evaluate if needed. Small hiatal hernia. Other findings above. Dictated by: Johan Finn M.D. on 10/07/2024 at 9:23 MDM Narrative Medical decision making narrative: CC: Right flank pain, abdominal pain Complicating co-morbidities: Symptoms progressive since worse in the last 5-6 days Data collected from: patient Medical records reviewed: Primary care note from the 20th reviewed Differential considered: Carcinomatosis, obstructing cancer causing bowel obstruction, ureteral obstruction, kidney stone Exam documented above, pertinent findings include: Patient appears uncomfortable but is able to converse, stand and move without difficulty. Does not have reproducible pain with palpation, difficulty standing up straight because of his abdominal/flank pain. Fullness through the lower abdomen. Lab Test results independently reviewed as above. Pertinent findings: CBC shows leukocytosis at 15.7 with left shift. No anemia. Chemistries are notable for appropriate renal function, Elavil a bilirubin at 2.0 to his minimally elevated from his baseline Lipase is not elevated Troponin is undetectable Urine shows red blood cells but does not look like there is an infection Independently reviewed EKG: Sinus rhythm at a rate of 71. No acute ischemic changes appreciated Imaging studies independently reviewed: Chest x-ray shows a mild opacity in the left lung base question atelectasis or early airspace disease Consultations: Dr Estrada, urology [facility] contacted. Notes that the patient is likely going to need either a stent or urostomy tubes. Given the fact that he is afebrile with normal renal function she does not feel that this is an emergency that must be addressed today. He likely has had this for a number of weeks given his symptoms started just after . Agrees with Guo catheter placement, increasing his Flomax to 0.8 mg daily and suggesting added Macrobid for UTI prophylaxis in this setting Discussion with Dr. Polanco, we will take the patient to the OR for stenting this afternoon Treatments: Guo catheter is placed without difficulty. Almost 2 L of urine removed pain significantly user to control after this Discussion: 74-year-old gentleman with acute urinary retention due to BPH and large obstructing right-sided mid ureteral stone with significant hydronephrosis and likely urinoma and forniceal rupture. Dr Polanco has agreed to see and assess the patient, we will take him to the OR for stenting today and we will arrange for follow up care. Currently no evidence of infection, sepsis, renal failure. Discharge Plan Departure Patient Disposition: Admitted to Surgery Clinical Impression: Ureterolithiasis, Pararenal urinoma, BPH loc w urin obs/LUTS, Acute urinary retention Admit Date/Time: 10/07/24 15:49 Admit Provider: Sanchez Polanco
--- NOTE | 2024-10-07 08:47 | DI.CT.S_ITS ---
PROCEDURE: CT ABDOMEN PELVIS W CON INDICATIONS: abdominal pain TECHNIQUE: After the administration of intravenous contrast, axial sections acquired from the lung bases to the pubic symphysis. Coronal and sagittal reformats were performed. For radiation dose reduction, the following was used: automated exposure control, adjustment of mA and/or kV according to patient size. COMPARISON: [facility], US ABDOMEN LIMITED, 04/07/2024, 15:05. FINDINGS: Image quality: Diagnostic Lower chest: Basal atelectasis. Moderate distal esophageal wall thickening and small hiatal hernia. Overall normal heart size. Suspected coronary calcifications. Small pericardial effusion. Liver: Possible hepatic steatosis. Gallbladder and biliary system: Unremarkable. Biliary system measures 7 mm, which is the upper limit of normal. Pancreas: No ductal dilation Spleen: Nonenlarged Adrenals: No discrete nodules Kidneys: Moderate to large right hydronephrosis. Along the anterior pararenal fascia, there is a thin fluid collection measuring 5 x 1.3 cm. Delayed right nephrogram. Urothelial thickening is seen along the course of the ureter. No left hydronephrosis. In the right mid ureter, there is an 8 x 7 mm calcified stone. Vessels and lymph nodes: The main portal vein is patent. No abdominal aortic aneurysm. No pathologic lymph nodes by size criteria. Bowel and peritoneum: The appendix is nondilated. No small bowel obstruction. Colonic diverticula are seen. No drainable ascites. Body wall: Unremarkable Pelvis: Heterogeneous enlarged prostate. Markedly distended bladder. Bones: There are degenerative changes. IMPRESSION: Moderate to large right hydronephrosis and urothelial thickening. Correlate urinalysis for any superimposed infection. 8 x 7 mm right mid ureter calcified stone. The bladder is markedly distended. Delayed right nephrogram indicates obstructive uropathy. There is a thin fluid collection anterior to the right kidney along the anterior pararenal fascia, sterility indeterminate. Differential includes a urinoma such as from forniceal rupture. Enlarged heterogeneously enhancing prostate, consider PSA correlation. Urologic follow-up is suggested for the above findings. The appendix is nondilated. No small bowel obstruction. Moderate esophageal wall thickening possibly esophagitis, endoscopy could further evaluate if needed. Small hiatal hernia. Other findings above. Dictated by: Johan Finn M.D. on 10/07/2024 at 9:23 Approved by: Johan Finn M.D. on 10/07/2024 at 9:31
--- NOTE | 2024-10-07 08:47 | DI.RAD.S_ITS ---
PROCEDURE: XR CHEST 1V INDICATIONS: abdominal pain TECHNIQUE: One view of the chest was acquired. COMPARISON: None. FINDINGS: Surgical changes and devices: None. Lungs and pleura: There is a mild opacity at the left lung base. No pleural effusions. Mediastinum: No pneumoperitoneum in the upper abdomen. Normal heart size. Bones and chest wall: Degenerative changes IMPRESSION: Mild opacity of left lung base could represent atelectasis or early airspace disease. Consider future imaging surveillance to assess for resolution. No pneumoperitoneum in the upper abdomen partially seen. Dictated by: Johan Finn M.D. on 10/07/2024 at 9:10 Approved by: Johan Finn M.D. on 10/07/2024 at 9:10
[2024-10-07] MEDS: HYDROMORPHONE 0.5 MG INJ IV (08:54)
[2024-10-07] MEDS: ONDANSETRON 4 MG/2 ML INJ IV (08:54)
[2024-10-07 08:55] LABS: Add Manual Diff / Slide Review NO; Basophils Absolute Auto 100 /uL (0-100); Basophils Percent Auto 0.5 % (0-2); Eosinophils Absolute Auto 0 /uL (0-450); Eosinophils Percent Auto 0.1 % (2-4); Hematocrit 50.2 % (41-53); Lymphocytes Absolute Auto 1000 /uL (1100-4500); Lymphocytes Percent Auto 6.2 % (25-40); Mean Corpuscular Hemoglobin 32.7 PG (26-34); Mean Corpuscular Volume 96.4 fL (80-100); Monocytes Absolute Auto 1200 /uL (0-900); Monocytes Percent Auto 7.5 % (3-14); Neutrophils Absolute Auto 13500 /uL (1500-7000); Neutrophils Percent Auto 85.7 % (50-75); Platelet Count 401 X10^3/uL (150-400); Red Cell Distribution Width 12.6 % (11.6-14.8); White Blood Cell Count 15.7 X10^3/uL (4.5-11.0)
--- NOTE | 2024-10-07 08:55 | EKG_ITS ---
[address] [address] Test Date: 2024-10-07 Pat Name: Zach Chen Department: [facility] Room: Gender: Male [employer] Cook: GABE : 1950 Requested By: Order Number: [id number] Reading MD: Juan Hinojosa Measurements Intervals [place] Rate: 71 P: 32 NC: 146 QRS: 20 QRSD: 74 T: 60 QT: 380 QTc: 412 Interpretive Statements Normal sinus rhythm Electronically Signed On 10-07-2024 15:13:12 PST by Juan Hinojosa
[2024-10-07 08:56] LABS: Urine Volume 10mL (spun)
[2024-10-07 09:01] LABS: Bacteria Urine Occasional (0-1); Culture Indicated Urine Cult Not Indicated; Mucus Urine 1+ (Negative); RBC Urine 10-30/HPF (0-5/HPF); Squamous Epithelial Cell Urine None Seen (0-5/HPF); WBC Urine 0-1/HPF (0-5/HPF)
[2024-10-07 09:16] LABS: Creatine Kinase 61 U/L (55-170)
[2024-10-07 09:17] LABS: Alanine Aminotransferase 25 IU/L (<50); Albumin 4.5 g/dL (3.5-5.0); Albumin Globulin Ratio 1.5 (1.0-2.8); Alkaline Phosphatase 77 U/L (38-126); Aspartate Aminotransferase 27 IU/L (17-59); BUN Creatinine Ratio 25.7 (6-22); Blood Urea Nitrogen 28 mg/dL (9-20); Calcium 9.9 mg/dL (8.4-10.2); Carbon Dioxide 27 mmol/L (22-32); Chloride 99 mmol/L (98-107); Estimated Glomerular Filt Rate > 60 mL/min (>60); Glucose 118 mg/dL (80-110); HEMOLYSIS < 15 (0-50); Lipase 185 U/L (23-300); Potassium 3.7 mmol/L (3.4-5.1); Sodium 138 mmol/L (137-145); Total Protein 7.5 g/dL (6.3-8.2)
[2024-10-07 09:29] LABS: Troponin I < 0.012 ng/mL (0.01-0.034)
[2024-10-07] MEDS: KETOROLAC 30 MG/ML VIAL 15 MG IV (10:40)
--- NOTE | 2024-10-07 11:39 | P.CONS_ITS ---
History of Present Illness Consult details Date Patient Seen: 10/07/24 Time Patient Seen: 11:40 Chief complaint: per pt kidney stones needs CT Reason for consult: 8mm right mid ureterolith Narrative: 74 y/o M presents to ER for evaluation of his intermittent right flank pain and nausea/vomiting. He admits that for nearly 30 days he has suffered from intermittent right flank pain that will radiate towards his right groin in addition to nausea/vomiting. He also feels that he is having more difficulty urinating than normal for him and that his lower abdomen is becoming distended. His evaluation in the ER was notable for a WBC of 15.7, sCr of 1.09, unremarkable UA and a CT Abd/Pel that demonstrates an 8mm right mid ureterolith with resultant upstream moderate to severe hydroureteronephrosis and concern for fornyceal rupture as well as a very distended bladder. A phillip catheter was placed in the ER and it was notable for drainage of 2L of brown urine. He has been taking Tamsulosin 0.8mg daily for the last week now. At baseline, he admits to a weak urinary stream, urinary frequency/urgency/intermittency and nocturia up to 3 times per night. He otherwise denies the sensation of incomplete bladder emptying or urinary hesitancy. Meds Home Medications and Allergies Home Medications Medication Instructions Recorded Confirmed Type [VITAMIN C] Q DAY ##0 11/19/11 10/01/24 History [VITAMIN E] QDAY ##0 11/19/11 10/01/24 History tamsulosin 0.4 mg capsule 0.4 mg PO BID #180 caps 01/14/24 10/01/24 Rx Allergies Allergy/AdvReac Type Severity Reaction Status Date / Time No Known Drug Allergies Allergy Verified 10/07/24 08:24 Review of Systems Review of Systems Narrative: CONSTITUTIONAL: Denies weight loss, fevers, chills. HEENT: Denies change in vision, hearing. RESP: Denies SOB, cough. CV: Denies palpations, CP. GI: Denies abdominal pain, diarrhea. MSK: Denies myalgia, joint pain. SKIN: Denies rash, pruritus. NEURO: Denies headache, syncope. PSYCH: Denies recent change in mood, anxiety, depression. Exam Vital Signs (past 8 hours): - 10/07/24 08:21 Temperature 97.5 F L Pulse Rate 83 Respiratory Rate 14 Blood Pressure 176/97 H Pulse Oximetry 99 Oxygen Delivery Method Room Air Oxygen Delivery Method Room Air Narrative Exam Narrative: GEN: Alert and oriented X3. No acute distress. Well-nourished. EYES: PERRLA, EOMI. HENT: Moist mucus membranes, no scleral icterus, normal neck ROM. RESP: Unlabored breathing, equal rise and fall of chest bilaterally, no cyanosis appreciated. CV: No peripheral edema, unremarkable heart rate. ABD: Soft, non-tender, non-distended, no palpable masses. : Unremarkable penis, no urethral discharge, no meatal stenosis. Phillip secured and draining light brown urine. EXT: No edema, clubbing or cyanosis. SKIN: No rashes or lesions. NEURO: No focal neurologic deficits, CN II-XII grossly intact. PSYCH: Cooperative, appropriate mood and affect. Objective Labs 10/07/24 08:46 10/07/24 08:46 Labs: Laboratory Results - last 24 hr 10/07/24 10/07/24 08:35 08:46 WBC 15.7 H RBC 5.20 Hgb 17.0 Hct 50.2 MCV 96.4 MCH 32.7 MCHC 34.0 RDW 12.6 Plt Count 401 H Neut % (Auto) 85.7 H Lymph % (Auto) 6.2 L [place] % (Auto) 7.5 Eos % (Auto) 0.1 L Baso % (Auto) 0.5 Neut # (Auto) 88378 H Lymph # (Auto) 1000 L [place] # (Auto) 1200 H Eos # (Auto) 0 Baso # (Auto) 100 Sodium 138 Potassium 3.7 Chloride 99 Carbon Dioxide 27 BUN 28 H Creatinine 1.09 Estimated GFR > 60 BUN/Creatinine Ratio 25.7 H Glucose 118 H Calcium 9.9 Total Bilirubin 2.0 H AST 27 ALT 25 Alkaline Phosphatase 77 Total Creatine Kinase 61 Troponin I < 0.012 Total Protein 7.5 Albumin 4.5 Globulin 3.0 Albumin/Globulin Ratio 1.5 Lipase 185 Urine RBC 10-30/hpf H Urine WBC 0-1/hpf Ur Squamous Epith Cells None seen Urine Bacteria Occasional (0-1) Urine Mucus 1+ H Ur Culture Indicated? Cult not indicated Vol Urine Centrifuged 10ml (spun) [facility] Medical History Constipation Weight gain Kidney stone on right side H/O adenomatous polyp of colon GERD without esophagitis Elevated PSA Seborrheic keratosis Benign prostatic hyperplasia with urinary obstruction (05/21/16) Peripheral neuropathy (08/10/14) Mass of left breast (08/10/14) Surgical History History of hernia repair (~1968) Family History Brother Prostate cancer Father Brain tumor Social History marital status: unmarried,single household members: significant other pets and animals: Yes occupational status: previously employed Tobacco & Substance Use Smoking Status: Never smoker alcohol intake: never substance use type: does not use Assessment & Plan Assessment and plan (1) Right ureteral calculus: Status: Acute Plan: 74 y/o M w/ a newly diagnosed 8mm right mid ureterolith with resultant upstream moderate to severe hydroureteronephrosis and concern for fornyceal rupture. Discussed treatment options to include continued medical expulsion therapy (not recommended given the degree of hydronephrosis, HEATH and delayed right nephrogram with persistent symptoms for roughly 30 days) vs cystoscopy with right ureteral stent placement. Discussed risks of the procedure to include pain, bleeding, infection, injury to urethra/bladder/ureter, inability to access the ureter requiring discussion with Interventional Radiology regarding a possible ureteral stent placement in an antegrade fashion vs a possible nephroureteral stent and/or percutaneous nephrostomy tube, urinary tract infection, inability to remove all of the stone in one setting, need for emergent open repair of bladder and/or ureter. Informed consent was obtained in the ER. (2) BPH loc w urin obs/LUTS: Status: Acute Plan: Noted to have symptoms consistent w/ BPH and LUTS that are currently managed with Tamsulosin 0.8mg daily. He also suffers from acute urinary retention at the moment. Discussed the need for bladder rest for a few weeks given that 2L of urine was drained upon insertion of his phillip catheter. Will discuss treatment options available in the future. (3) Acute urinary retention: Status: Acute Plan: Please see plan under BPH. Time-Based Coding :: [TOTAL MINUTES] spent with patient and on the chart (including review of chart, obtaining history, exam, reviewing outside data, placing orders, documenting exam and treatment plan, and counseling patient) on [DATE]. PROFEE Charge Codes Inpatient or Observation consultation: [id number]
[2024-10-07] MEDS: CEFAZOLIN 2 GM/100 ML PREMIX 100 ML IV (12:01)
[2024-10-07] MEDS: LACTATED RINGERS 1,000 ML 100 ML IV (13:22)
--- NOTE | 2024-10-07 14:56 | PM.OP.1 ---
Procedure & Clinicians Procedure: Cystoscopy Guo catheter exchange Same procedure as scheduled: Yes Indications: 74 y/o M w/ a newly diagnosed 8mm right mid ureterolith with resultant upstream moderate to severe hydroureteronephrosis and concern for fornyceal rupture in the setting of inadequate pain control and continued nausea/vomiting who is also in acute urinary retention. Surgeon: Sanchez Polanco Click Yes if Unassisted: Yes Anesthesia Type: General Operative Notes Findings: Very large intravesical median lobe, trilobar hyperplasia of prostate, impacted right mid ureteral stone, retained contrast in right renal collecting system from previous CT Abd/Pel, inability to place right ureteral stent Closure Type: not applicable Specimen(s): none sent Applied: catheter Estimated Blood Loss (mL): 3 Blood products transfused: none Procedure in detail: Patient was identified in the preoperative holding area and consent confirmed. He was then brought to the operating room where general anesthesia was induced.? He was then placed in the low lithotomy position. He was then prepped and draped in the usual sterile fashion. A surgical timeout was conducted and all were in agreement. Access to the bladder was obtained via a 21Fr cystoscope.? He was noted to have trilobar hyerplasia of his prostate with a very large intravesical median lobe. His right ureteral orifice was eventually identified and noted to be closer to midline than expected. This was easily cannulated using a 5Fr ureteral catheter over a 0.035 sensor tip ureteral guidewire.? He was noted to have retained contrast within his right renal collecting system from his previous CT Abd/Pel from earlier today. Multiple attempts to advance the aforementioned sensor tip ureteral guidewire, a straight tipped Glidewire and an angle tipped Glidewire were all unsuccessful. Therefore, the decision was made to drain the bladder, remove the cystoscope and insert an 18Fr coude catheter. 10cc of sterile water was utilized for balloon insufflation. Anesthesia was reversed, he was extubated in the OR and transferred to the PACU in stable condition for recovery. Complications: none Post-operative Condition: stable Disposition: Acute Care Plan for aftercare: Will admit to the ACS and plan on transferring to a facility that has Interventional Radiology. Would kindly request their assistance in attempting to place an antegrade right ureteral stent or nephroureteral stent. If unable, would appreciate a right percutaneous nephrostomy tube.
--- NOTE | 2024-10-07 17:22 | P.CONS_ITS ---
History of Present Illness Consult details Date Patient Seen: 10/07/24 Time Patient Seen: 17:22 Chief complaint: per pt kidney stones needs CT Narrative: Patient was a 74-year-old male with no other medical problems who presents with renal colic and nephrolithiasis. The patient was intermittent episodes of renal colic for the past several weeks. He presented today because of increased pain and was found to have a completely obstructed right kidney with an 8 mm stone. It was white count was 15.7. He was on chronic Flomax for BPH, for the last week. He denies any hematuria, dysuria, fevers, or chills. Unfortunately, in the operating room the patient was unable to have the wire passed past the stone for stenting from the bladder. The patient needs to have a alternative approach with percutaneous imaging and Interventional Radiology. This, is not available here. The patient will be placed in the hospital until we can find a suitable place to transfer the patient for percutaneous nephrostomy and possible percutaneous stenting given the failed cystoscopy approach. The patient's pain is well-controlled, no nausea or vomiting. No recent fevers. Meds Home Medications and Allergies Home Medications Medication Instructions Recorded Confirmed Type [VITAMIN C] Q DAY ##0 11/19/11 10/01/24 History [VITAMIN E] QDAY ##0 11/19/11 10/01/24 History tamsulosin 0.4 mg capsule 0.4 mg PO BID #180 caps 01/14/24 10/07/24 Rx Allergies Allergy/AdvReac Type Severity Reaction Status Date / Time No Known Drug Allergies Allergy Verified 10/07/24 08:24 Review of Systems Review of Systems Narrative: All else reviewed and otherwise unremarkable except as noted in the history and physical. Exam Vital Signs (past 8 hours): - 10/07/24 13:12 10/07/24 14:40 10/07/24 14:45 Temperature 97.7 F 97.0 F L 97.2 F L Pulse Rate 72 84 88 Respiratory Rate 15 16 16 Blood Pressure 174/87 H 154/89 H 155/91 H Pulse Oximetry 98 98 98 Oxygen Delivery Method Room Air Room Air Room Air Oxygen Flow Rate 10/07/24 14:50 10/07/24 14:56 10/07/24 15:40 Temperature 97.1 F L 97.5 F L 97.4 F L Pulse Rate 87 86 81 Respiratory Rate 16 15 18 Blood Pressure 153/89 H 162/77 H 163/116 H Pulse Oximetry 94 96 95 Oxygen Delivery Method Room Air Room Air Oxygen Flow Rate 0 10/07/24 16:09 10/07/24 16:44 Temperature 97.5 F L 97.6 F Pulse Rate 73 75 Respiratory Rate 18 18 Blood Pressure 153/91 H 139/93 H Pulse Oximetry 92 93 Oxygen Delivery Method Oxygen Flow Rate 0 0 Oxygen Delivery Method Room Air Oxygen Flow Rate 0 Narrative Exam Narrative: NAD, alert and oriented, fluent speech, calm. Normocephalic skull, EOMI, anicteric sclera, symmetric pupils. Oropharynx unremarkable, no droop. Neck supple, midline trachea, no adenopathy. Lungs clear, normal rate and effort. Heart regular, no murmur gallop or rub. Abdomen is soft, non distended and non tender. Extremities are free of edema. Skin is free of rash or lesions. Joints are not swollen or deformed. Judgment appears to be normal. Objective ECG Impression: Normal sinus rhythm Imaging CT scan - abdomen: Radiologist's impression: IMPRESSION: Moderate to large right hydronephrosis and urothelial thickening. Correlate urinalysis for any superimposed infection. 8 x 7 mm right mid ureter calcified stone. The bladder is markedly distended. Delayed right nephrogram indicates obstructive uropathy. There is a thin fluid collection anterior to the right kidney along the anterior pararenal fascia, sterility indeterminate. Differential includes a urinoma such as from forniceal rupture. Enlarged heterogeneously enhancing prostate, consider PSA correlation. Urologic follow-up is suggested for the above findings. The appendix is nondilated. No small bowel obstruction. Moderate esophageal wall thickening possibly esophagitis, endoscopy could further evaluate if needed. Small hiatal hernia. Chest x-ray: Radiologist's impression: Mild opacity of left lung base could represent atelectasis or early airspace disease. Consider future imaging surveillance to assess for resolution. No pneumoperitoneum in the upper abdomen partially seen. Labs 10/07/24 08:46 10/07/24 08:46 Labs: Laboratory Results - last 24 hr 10/07/24 10/07/24 08:35 08:46 WBC 15.7 H RBC 5.20 Hgb 17.0 Hct 50.2 MCV 96.4 MCH 32.7 MCHC 34.0 RDW 12.6 Plt Count 401 H Neut % (Auto) 85.7 H Lymph % (Auto) 6.2 L [place] % (Auto) 7.5 Eos % (Auto) 0.1 L Baso % (Auto) 0.5 Neut # (Auto) 41102 H Lymph # (Auto) 1000 L [place] # (Auto) 1200 H Eos # (Auto) 0 Baso # (Auto) 100 Sodium 138 Potassium 3.7 Chloride 99 Carbon Dioxide 27 BUN 28 H Creatinine 1.09 Estimated GFR > 60 BUN/Creatinine Ratio 25.7 H Glucose 118 H Calcium 9.9 Total Bilirubin 2.0 H AST 27 ALT 25 Alkaline Phosphatase 77 Total Creatine Kinase 61 Troponin I < 0.012 Total Protein 7.5 Albumin 4.5 Globulin 3.0 Albumin/Globulin Ratio 1.5 Lipase 185 Urine RBC 10-30/hpf H Urine WBC 0-1/hpf Ur Squamous Epith Cells None seen Urine Bacteria Occasional (0-1) Urine Mucus 1+ H Ur Culture Indicated? Cult not indicated Vol Urine Centrifuged 10ml (spun) [facility] Medical History Constipation Weight gain Kidney stone on right side H/O adenomatous polyp of colon GERD without esophagitis Elevated PSA Seborrheic keratosis Benign prostatic hyperplasia with urinary obstruction (05/21/16) Peripheral neuropathy (08/10/14) Mass of left breast (08/10/14) Surgical History History of hernia repair (~1967) Family History Brother Prostate cancer Father Brain tumor Social History marital status: unmarried,single household members: significant other pets and animals: Yes occupational status: previously employed Tobacco & Substance Use Smoking Status: Never smoker alcohol intake: never substance use type: does not use Assessment & Plan Assessment & Plan narrative: 1. Obstructing kidney stone with renal colic, present on admission and active. Plan: -empiric ceftriaxone 1 g IV now -IV fluids, continue pain medications. -attempting transfer, [place] and [place] were full, [place] was full, [place] does not have IR. Sounds as though [facility] may be able to assist. We will transfer when accepted. FULL CODE. Time-Based Coding :: 35 min spent with patient and on the chart (including review of chart, obtaining history, exam, reviewing outside data, placing orders, documenting exam and treatment plan, and counseling patient) on 10/07.
[2024-10-07] MEDS: TAMSULOSIN 0.4 MG CAPSULE PO (20:57)
--- NOTE | 2024-10-07 21:09 | P.DS_ITS ---
History of Present Illness History of Present Illness Chief complaint: per pt kidney stones needs CT Narrative: Presented with obstructing kidney stone. Discharge Providers Provider Date of admission: 10/07/24 15:49 Discharge Date: 10/07/24 Primary care physician: Landry Bay MD Discharge provider: Anibal Hurtado MD Summary Hospital Course Discharge Diagnosis: Obstructing Kidney Stone Hospital Course: Patient was a 74-year-old male with no other medical problems who presents with renal colic and nephrolithiasis. The patient was intermittent episodes of renal colic for the past several weeks. He presented today because of increased pain and was found to have a completely obstructed right kidney with an 8 mm stone. It was white count was 15.7. He was on chronic Flomax for BPH, for the last week. He denies any hematuria, dysuria, fevers, or chills. Unfortunately, in the operating room the patient was unable to have the wire passed past the stone for stenting from the bladder. The patient needs to have a alternative approach with percutaneous imaging and Interventional Radiology. This, is not available here. Transferred for percutaneous nephrostomy and possible percutaneous stenting given the failed cystoscopy approach. Status at Discharge Cognitive/behavioral status at discharge: at baseline, oriented Overall status at discharge: patient is not back to baseline Exam Vital Signs (past 8 hours): - 10/07/24 13:12 10/07/24 14:40 10/07/24 14:45 Temperature 97.7 F 97.0 F L 97.2 F L Pulse Rate 72 84 88 Respiratory Rate 15 16 16 Blood Pressure 174/87 H 154/89 H 155/91 H Pulse Oximetry 98 98 98 Oxygen Delivery Method Room Air Room Air Room Air Oxygen Flow Rate 10/07/24 14:50 10/07/24 14:56 10/07/24 15:40 Temperature 97.1 F L 97.5 F L 97.4 F L Pulse Rate 87 86 81 Respiratory Rate 16 15 18 Blood Pressure 153/89 H 162/77 H 163/116 H Pulse Oximetry 94 96 95 Oxygen Delivery Method Room Air Room Air Oxygen Flow Rate 0 10/07/24 16:09 10/07/24 16:44 10/07/24 17:49 Temperature 97.5 F L 97.6 F 97.9 F Pulse Rate 73 75 70 Respiratory Rate 18 18 16 Blood Pressure 153/91 H 139/93 H 129/77 Pulse Oximetry 92 93 93 Oxygen Delivery Method Oxygen Flow Rate 0 0 0 10/07/24 18:44 10/07/24 20:51 Temperature 97.5 F L 97.2 F L Pulse Rate 65 64 Respiratory Rate 16 18 Blood Pressure 129/79 122/78 Pulse Oximetry 94 94 Oxygen Delivery Method Oxygen Flow Rate 0 0 Oxygen Delivery Method Room Air Oxygen Flow Rate 0 Objective Labs 10/07/24 08:46 10/07/24 08:46 Labs: Laboratory Results - last 24 hr 10/07/24 10/07/24 08:35 08:46 WBC 15.7 H RBC 5.20 Hgb 17.0 Hct 50.2 MCV 96.4 MCH 32.7 MCHC 34.0 RDW 12.6 Plt Count 401 H Neut % (Auto) 85.7 H Lymph % (Auto) 6.2 L [place] % (Auto) 7.5 Eos % (Auto) 0.1 L Baso % (Auto) 0.5 Neut # (Auto) 36558 H Lymph # (Auto) 1000 L [place] # (Auto) 1200 H Eos # (Auto) 0 Baso # (Auto) 100 Sodium 138 Potassium 3.7 Chloride 99 Carbon Dioxide 27 BUN 28 H Creatinine 1.09 Estimated GFR > 60 BUN/Creatinine Ratio 25.7 H Glucose 118 H Calcium 9.9 Total Bilirubin 2.0 H AST 27 ALT 25 Alkaline Phosphatase 77 Total Creatine Kinase 61 Troponin I < 0.012 Total Protein 7.5 Albumin 4.5 Globulin 3.0 Albumin/Globulin Ratio 1.5 Lipase 185 Urine RBC 10-30/hpf H Urine WBC 0-1/hpf Ur Squamous Epith Cells None seen Urine Bacteria Occasional (0-1) Urine Mucus 1+ H Ur Culture Indicated? Cult not indicated Vol Urine Centrifuged 10ml (spun) [facility] Medical History Constipation Weight gain Kidney stone on right side H/O adenomatous polyp of colon GERD without esophagitis Elevated PSA Seborrheic keratosis Benign prostatic hyperplasia with urinary obstruction (05/21/16) Peripheral neuropathy (08/10/14) Mass of left breast (08/10/14) Surgical History History of hernia repair (~1967) Family History Brother Prostate cancer Father Brain tumor Social History (Updated 09/24/23 @ 13:03 by Alayna Puga MA) marital status: unmarried,single household members: significant other pets and animals: Yes occupational status: previously employed Smoking Status: Never smoker alcohol intake: never substance use type: does not use Discharge Plan Discharge Plan Patient Disposition: [facility] Other facility: [facility] Visit Report/Discharge Packet Stand Alone Forms: Patient Portal/API, Stroke Signs & Symptoms Discharge Data Primary Care Provider: Landry Bay Attending Provider: Sanchez Polanco Admit Date/Time: 10/07/24 15:49 Quality VTE Deep Vein Thrombosis/Pulmonary Embolism Present on Admission: No
== END 2024-10-07 22:30 | disposition short-term general hospital (02) ==
LOC: ED 11:43 → AC 15:50
PROVIDERS: Admitting Provider Urology; Emergency Provider Emergency Medicine; PCP Family Medicine; Referring Provider Emergency Medicine; Visit Provider Urology
PROC: (CPT 52000; principal; 2024-10-07 13:30)
DX: N20.1 Calculus of ureter (principal); N40.1 Benign prostatic hyperplasia with lower urinary tract symptoms; R33.8 Other retention of urine
CPT/HCPCS: 52000; 36415; 71045; 74177; 76000; 80053; 81003; 81015; 82550; 83690; 84484; 85025; 87086; 93005; 96365; 96375; 99222; 99284; 99285; G0378; J0330; J0690; J1171; J1885; J2405; J2704; J3010; Q9967

== ENCOUNTER 2024-10-17 06:37 | Emergency (ER) | payer MEDICARE, SELFPAY ==
[2024-10-07 16:39] VITALS: BMI 24.4
[2024-10-17] VITALS (11 sets, daily range): BP systolic 116–171; BP diastolic 67–93; PULSE 56–76; RESP 15–16; TEMP 36.9; O2SAT 96–98; BMI 24.3
--- NOTE | 2024-10-17 07:25 | ED_ITS ---
HPI - General Adult General Chief complaint: Urogenital-Male Stated complaint: kidney stones, blood in urine Time Seen by Provider: 10/17/24 07:25 Source: patient, family, RN notes reviewed and old records reviewed Mode of arrival: Ambulatory Limitations: no limitations History of Present Illness HPI narrative: 74-year-old male history of BPH with LUTS, reflux, peripheral neuropathy, prior kidney stones who had kidney stone seen on October 07 had a Phillip catheter placed with attempted lithotripsy and was sent to [facility] where he had a urostomy placed 1227. Patient states since then both bag has been draining urine he has had some blood on and off started to clot within the bag itself but had increased pain on the right flank where his urostomy extends from overnight. No reports of fevers. Patient states no nausea or vomiting in the last several days. No issues with bowel movements. States he has had urine with blood in both his Phillip catheter and urostomy. Patient states no chest pain or shortness of breath. No left flank or lower abdominal pain. Patient takes Flomax 2 tablets daily states no other regular medications. Was on oral antibiotics but completed these. States only other surgeries besides his urostomy on 10/08 is a prior hernia repair. No reported drug allergies. No tobacco, alcohol or recreational drugs. Dr. Polanco is his urologist locally and who he was supposed to follow up for his kidney stone. His urostomy procedure was performed at [facility]. Related Data Home Medications Medication Instructions Recorded Confirmed [VITAMIN C] 1 tab PO Q DAY ##0 11/19/11 10/15/24 [VITAMIN E] 1 tab PO QDAY ##0 11/19/11 10/15/24 Previous Rx's Medication Instructions Recorded tamsulosin 0.4 mg capsule 0.4 mg PO BID #180 caps 01/14/24 levofloxacin 750 mg tablet 750 mg PO DAILY 7 days #7 tabs 10/17/24 Allergies Allergy/AdvReac Type Severity Reaction Status Date / Time No Known Drug Allergies Allergy Verified 10/15/24 15:00 Review of Systems Review of Systems ROS Unobtainable: All systems reviewed & are unremarkable except as noted in HPI and below Patient History Medical History Constipation Weight gain Kidney stone on right side H/O adenomatous polyp of colon GERD without esophagitis Elevated PSA Seborrheic keratosis Benign prostatic hyperplasia with urinary obstruction (05/21/16) Peripheral neuropathy (08/10/14) Mass of left breast (08/10/14) Surgical History History of hernia repair (~1968) Family History Brother Prostate cancer Father Brain tumor Social History marital status: unmarried,single household members: significant other pets and animals: Yes occupational status: previously employed Smoking Status: Never smoker alcohol intake: never substance use type: does not use Smoking Status: Never smoker Exam Narrative Exam Narrative: GENERAL: Alert and oriented x three, male in mild distress HEENT: Head normocephalic, atraumatic, EOMI, pupils reactive, face symmetric, moist mucous membranes NECK: Supple, full range of motion CARDIOVASCULAR: Regular rate and rhythm without murmurs, rubs or gallops. RESPIRATORY: Breath sounds equal bilaterally, no wheezes rales or rhonchi. ABDOMEN: Soft, nontender. Normoactive bowel sounds all 4 quadrants. No guarding or rebound, rigidity, no mass : No CVA tenderness, patient has urostomy on the right, site appears clean dry and intact patient's suture holding it in place is present. Patient also has Phillip catheter in place both of these are draining pinkish discolored urine there are some clots in the bags but not with in the tube. EXTREMITIES: Normal range of motion, no clubbing or edema. Neurovascularly intact NEUROLOGICAL: Cranial nerves II through XII grossly intact. Moving all extremities SKIN: Warm, dry, no petechiae, no rashes or lesions. Initial Vital Signs Initial Vital Signs: Vital Signs Temperature 98.4 F 10/17/24 06:58 Pulse Rate 76 10/17/24 06:58 Respiratory Rate 15 10/17/24 06:58 Blood Pressure 171/93 H 10/17/24 06:58 Pulse Oximetry 97 10/17/24 06:58 Oxygen Delivery Method Room Air 10/17/24 06:58 Course Orders Ordered: ED Orders 10/17/24 07:58 CT kidney ureter bladder (KUB) Stat 10/17/24 08:03 CBC Auto Diff [Complete Blood Count AUTO DIFF] Stat CMP [Comprehensive Metabolic Panel] Stat Lipase Stat 10/17/24 09:21 Ictotest Urine Stat UA Complete [Urinalysis and Microscopic] Stat Urine Culture Stat Discontinued Medications Levofloxacin (Levofloxacin 250 Mg Tablet) 750 mg PO NOW ONE Stop: 10/17/24 09:53 Last Admin: 10/17/24 10:27 Dose: 750 mg Documented By: VICTORIA Vital Signs Vital signs: Vital Signs - 8 hr 10/17/24 06:58 10/17/24 07:00 10/17/24 07:30 Temperature 98.4 F Pulse Rate 76 65 61 Respiratory Rate 15 Blood Pressure 171/93 H Pulse Oximetry 97 98 96 Oxygen Delivery Method Room Air 10/17/24 08:18 10/17/24 08:30 10/17/24 08:41 Temperature Pulse Rate 61 60 61 Respiratory Rate Blood Pressure Pulse Oximetry 97 96 98 Oxygen Delivery Method 10/17/24 08:41 10/17/24 09:00 10/17/24 09:00 Temperature Pulse Rate 59 L Respiratory Rate Blood Pressure 136/75 133/69 Pulse Oximetry 96 Oxygen Delivery Method 10/17/24 09:30 10/17/24 09:30 10/17/24 10:00 Temperature 98.4 F Pulse Rate 59 L 56 L Respiratory Rate Blood Pressure 138/74 Pulse Oximetry 97 96 Oxygen Delivery Method 10/17/24 10:00 10/17/24 10:30 10/17/24 10:54 Temperature Pulse Rate 64 62 Respiratory Rate Blood Pressure 116/67 Pulse Oximetry 96 97 Oxygen Delivery Method 10/17/24 10:54 Temperature Pulse Rate Respiratory Rate 16 Blood Pressure 153/85 H Pulse Oximetry Oxygen Delivery Method Medical Decision Making Lab Data 10/17/24 08:03 10/17/24 08:03 Labs: Lab Results 10/17/24 10/17/24 Range/Units 08:03 09:21 WBC 11.0 (4.5-11.0) X10^3/uL RBC 4.40 L (4.5-5.9) X10^6/uL Hgb 13.9 (13.5-17.5) g/dL Hct 42.3 (41-53) % MCV 96.3 (80-100) fL MCH 31.7 (26-34) PG MCHC 32.9 (30-36) % RDW 12.8 (11.6-14.8) % Plt Count 486 H (150-400) X10^3/uL Neut % (Auto) 78.4 H (50-75) % Lymph % (Auto) 11.9 L (25-40) % Sabine % (Auto) 8.4 (3-14) % Eos % (Auto) 0.7 L (2-4) % Baso % (Auto) 0.6 (0-2) % Neut # (Auto) 8700 H (6212-2800) /uL Lymph # (Auto) 1300 (0903-1087) /uL Sabine # (Auto) 900 (0-900) /uL Eos # (Auto) 100 (0-450) /uL Baso # (Auto) 100 (0-100) /uL Sodium 137 (137-145) mmol/L Potassium 4.1 (3.4-5.1) mmol/L Chloride 102 (98-107) mmol/L Carbon Dioxide 29 (22-32) mmol/L BUN 7 L (9-20) mg/dL Creatinine 0.69 (0.66-1.25) mg/dL Estimated GFR > 60 (>60) mL/min BUN/Creatinine Ratio 10.1 (6-22) Glucose 116 H (80-110) mg/dL Calcium 9.1 (8.4-10.2) mg/dL Total Bilirubin 0.7 (0.2-1.3) mg/dL AST 31 (17-59) IU/L ALT 31 (<50) IU/L Alkaline Phosphatase 80 (38-126) U/L Total Protein 6.8 (6.3-8.2) g/dL Albumin 3.9 (3.5-5.0) g/dL Globulin 2.9 (1.7-4.1) g/dL Albumin/Globulin Ratio 1.3 (1.0-2.8) Lipase 252 (23-300) U/L Urine Color Red Urine Appearance Cloudy Urine pH 8.5 H (4.5-8.0) Ur Specific Thorndike 1.010 (1.000-1.035) Urine Protein 2+ H (Negative) Urine Glucose (UA) Negative (Negative) g/dL Urine Ketones Trace H (NEGATIVE) Urine Occult Blood 3+ H (Negative) Urine Nitrate Positive H (Negative) Urine Bilirubin 2+ H (NEGATIVE) Ur Bilirubin Confirm Negative (Negative) Urine Urobilinogen 1.0 (0.2) E.U./dL Ur Leukocyte Esterase 2+ H (NEGATIVE) Urine RBC >100/hpf H (0-5/HPF) Urine WBC 1-5/hpf (0-5/HPF) Ur Squamous Epith Cells None seen (0-5/HPF) Urine Bacteria None seen (None) Ur Culture Indicated? Specimen cultured Vol Urine Centrifuged 10ml (spun) Imaging Data CT scan - abdomen/pelvis: Radiologist's Impression: [address] [address] [address] Scan Report Signed Patient: Zach Chen MR#: [id number] : 1950 Acct:[id number] Age/Sex: 74 / M Date of Service: 10/17/24 Loc: ED Accession Number: [id number] Procedure: CT kidney ureter bladder (KUB) Ordering Provider: Mary Yee D.O. PROCEDURE: CT KIDNEY URETER BLADDER (KUB) INDICATIONS: hematuria from urostomy and phillip, had pain at flank better TECHNIQUE: Axial sections were acquired from the lung bases to the pubic symphysis. Coronal and sagittal reformats were performed. For radiation dose reduction, the following was used: automated exposure control, adjustment of mA and/or kV according to patient size. COMPARISON: [facility], CT, CT ABDOMEN PELVIS W CON, 10/07/2024, 9:11. FINDINGS: Image quality: Diagnostic. Lower Chest: Trace pericardial fluid. No pleural effusion. URINARY: Right Kidney: Mild caliectasis, substantially improved compared to 10/07/2024. There is scant increased density within the right renal pelvis, (2/66). Nephrostomy tube coiled in the renal pelvis. Right Ureter: Mild hydroureter. Obstructing calculus in the distal right ureter measuring 0.6 x 0.5 cm, (2/108), previously located in the proximal ureter. Left Kidney: No stones or hydronephrosis. Small low-density cysts. Left Ureter: No hydroureter. Bladder: No stone in the urinary bladder. Bladder is only partially distended. Phillip catheter in the bladder. There is air in the urinary bladder. ABDOMEN: Liver: No contour-deforming solid mass. Gallbladder: Not distended. Multiple small calcified gallstones. Biliary ducts: No biliary dilation. Pancreas: No peripancreatic fluid collection. Spleen: Size is within normal limits. Adrenal Glands: No adrenal nodules. Stomach and Bowel: Diverticulosis. No diverticulitis identified. There is prominent stool in the proximal portions of the colon. The appendix is not dilated. Peritoneum: Irregular thickening at inferior lateral to the right kidney, (2/79). This most likely represents scant tracking hemorrhage. No ascites. No pneumoperitoneum. Ventral Wall: No hernia. Abdominal Nodes: No enlarged retroperitoneal or mesenteric lymph nodes. Vessels: Aorta and inferior vena cava are normal in size. PELVIS: Pelvic Organs: Prostatomegaly. Median lobe hypertrophy. Pelvic Nodes: Unremarkable. Miscellaneous: Probable fat containing left inguinal hernia. Bones: No suspicious osseous lesion. Multilevel DDD. IMPRESSION: 1. Right percutaneous nephrostomy tube with the tip coiled in the right renal pelvis. There is scant increased density within the right renal pelvis which most likely represents trace hemorrhage. Probable trace blood products tracking inferior lateral to the right kidney. 2. Mild right caliectasis, substantially improved. 3. Obstructing calculus in the distal right ureter measuring 0.6 cm. The stone has moved distally. 4. Prostatomegaly. Gallstones. Dictated by: Geraldo Weaver M.D. on 10/17/2024 at 8:29 Approved by: Geraldo Weaver M.D. on 10/17/2024 at 8:46 MDM Narrative Medical decision making narrative: 74-year-old male with recent urostomy placed for kidney stone, patient presents with hematuria from both Phillip catheter and urostomy noted significant pain in the right flank although he states it has improved at this time. Patient is slightly hypertensive on initial vitals but no fever or tachycardia. Patient has several of his discharge from [facility] showed moderate to severe hydroureteronephrosis and concern for forniceal rupture as well as acute urinary retention had cystoscopy and ureteral stent was unable to be placed transferred for Interventional Radiology and a right percutaneous nephrostomy tube was done without complication patient continued on antibiotics. Labs show white count of 11 hemoglobin of 13.9 platelets of 486. Chemistries show sodium 137 potassium 4 1 chloride of 102 CO2 of 29 with a BUN of 7 creatinine of 0.69 glucose of 116 LFTs are negative. Urinalysis shows nitrate positive urine 2+ bilirubin, 2+ leukocyte esterase greater than 100 RBCs 1-5 WBCs no squamous no bacteria sent for culture. CT KUB shows mild caliectasis substantially improved compared to prior 09/17/2024 scant increased density within the right pelvis nephrostomy tube coiled in the renal pelvis mild hydroureter obstructing calculus distal right ureter measuring 0.6 x 0.5 cm previously in the proximal ureter left kidney shows no stones or hydro and no hydroureter with small low-density cyst present. Bladder shows no stone partially distended Phillip catheter in the bladder there was air in the bladder multiple small calcified gallstones prostatomegaly multiple to degenerative disc disease. Spoke with urology Dr. Polanco, reviewed patient's findings imaging and workup thus far ask if you can place patient on dose of antibiotic they are looking at the 01 of November for follow up in the OR. Discussed findings with the patient plan to continue with the antibiotics at this time. Patient is continuing to feel improved. Did not note some movement of his kidney stone from his prior imaging so it is possible some of patient's pain may has been from movement of his stone. Reviewed findings with patient he feels comfortable with this plan all questions answered. Discharge Plan Departure Patient Disposition: Home Clinical Impression: Hematuria, Acute UTI Activity Restrictions/Additional Instructions: Follow up with Dr. Polanco your urologist. Your imaging shows that your nephrostomy tube is in the correct place, you have had improvement of the swelling of the kidney region and your kidney stone has moved a little farther down the ureter towards the bladder. Your urine shows possible infection versus colonization please take oral antibiotics until completed. Prescription was sent to [facility] in [place]. Please return for fevers greater than 100.4 F, new or worsening abdominal back or flank pain, any signs of obstruction or inability to drain urine from either of your catheters/urostomy tube, vomiting or other new or concerning changes. Prescriptions: New levofloxacin 750 mg tablet 750 mg PO DAILY 7 Days Qty: 7 0RF No Action [VITAMIN C] 1 tab PO Q DAY Qty: 0 [VITAMIN E] 1 tab PO QDAY Qty: 0 tamsulosin 0.4 mg capsule 0.4 mg PO BID Qty: 180 3RF Referrals: Sanchez Polanco DO [Physician] - [place] MD [Primary Care Provider] - Stand Alone Forms: Patient Portal/API/Survey
--- NOTE | 2024-10-17 07:58 | DI.CT.S_ITS ---
PROCEDURE: CT KIDNEY URETER BLADDER (KUB) INDICATIONS: hematuria from urostomy and phillip, had pain at flank better TECHNIQUE: Axial sections were acquired from the lung bases to the pubic symphysis. Coronal and sagittal reformats were performed. For radiation dose reduction, the following was used: automated exposure control, adjustment of mA and/or kV according to patient size. COMPARISON: [facility], CT, CT ABDOMEN PELVIS W CON, 10/07/2024, 9:11. FINDINGS: Image quality: Diagnostic. Lower Chest: Trace pericardial fluid. No pleural effusion. URINARY: Right Kidney: Mild caliectasis, substantially improved compared to 10/07/2024. There is scant increased density within the right renal pelvis, (2/66). Nephrostomy tube coiled in the renal pelvis. Right Ureter: Mild hydroureter. Obstructing calculus in the distal right ureter measuring 0.6 x 0.5 cm, (2/108), previously located in the proximal ureter. Left Kidney: No stones or hydronephrosis. Small low-density cysts. Left Ureter: No hydroureter. Bladder: No stone in the urinary bladder. Bladder is only partially distended. Phillip catheter in the bladder. There is air in the urinary bladder. ABDOMEN: Liver: No contour-deforming solid mass. Gallbladder: Not distended. Multiple small calcified gallstones. Biliary ducts: No biliary dilation. Pancreas: No peripancreatic fluid collection. Spleen: Size is within normal limits. Adrenal Glands: No adrenal nodules. Stomach and Bowel: Diverticulosis. No diverticulitis identified. There is prominent stool in the proximal portions of the colon. The appendix is not dilated. Peritoneum: Irregular thickening at inferior lateral to the right kidney, (2/79). This most likely represents scant tracking hemorrhage. No ascites. No pneumoperitoneum. Ventral Wall: No hernia. Abdominal Nodes: No enlarged retroperitoneal or mesenteric lymph nodes. Vessels: Aorta and inferior vena cava are normal in size. PELVIS: Pelvic Organs: Prostatomegaly. Median lobe hypertrophy. Pelvic Nodes: Unremarkable. Miscellaneous: Probable fat containing left inguinal hernia. Bones: No suspicious osseous lesion. Multilevel DDD. IMPRESSION: 1. Right percutaneous nephrostomy tube with the tip coiled in the right renal pelvis. There is scant increased density within the right renal pelvis which most likely represents trace hemorrhage. Probable trace blood products tracking inferior lateral to the right kidney. 2. Mild right caliectasis, substantially improved. 3. Obstructing calculus in the distal right ureter measuring 0.6 cm. The stone has moved distally. 4. Prostatomegaly. Gallstones. Dictated by: Geraldo Weaver M.D. on 10/17/2024 at 8:29 Approved by: Geraldo Weaver M.D. on 10/17/2024 at 8:46
[2024-10-17 08:17] LABS: Add Manual Diff / Slide Review NO; Basophils Absolute Auto 100 /uL (0-100); Basophils Percent Auto 0.6 % (0-2); Eosinophils Absolute Auto 100 /uL (0-450); Eosinophils Percent Auto 0.7 % (2-4); Hematocrit 42.3 % (41-53); Hemoglobin 13.9 g/dL (13.5-17.5); Lymphocytes Absolute Auto 1300 /uL (1100-4500); Lymphocytes Percent Auto 11.9 % (25-40); Mean Corpuscular HGB Conc 32.9 % (30-36); Mean Corpuscular Hemoglobin 31.7 PG (26-34); Mean Corpuscular Volume 96.3 fL (80-100); Monocytes Absolute Auto 900 /uL (0-900); Monocytes Percent Auto 8.4 % (3-14); Neutrophils Absolute Auto 8700 /uL (1500-7000); Neutrophils Percent Auto 78.4 % (50-75); Platelet Count 486 X10^3/uL (150-400); Red Cell Distribution Width 12.8 % (11.6-14.8)
[2024-10-17 08:25] LABS: Alanine Aminotransferase 31 IU/L (<50); Albumin 3.9 g/dL (3.5-5.0); Albumin Globulin Ratio 1.3 (1.0-2.8); Alkaline Phosphatase 80 U/L (38-126); Aspartate Aminotransferase 31 IU/L (17-59); BUN Creatinine Ratio 10.1 (6-22); Bilirubin Total 0.7 mg/dL (0.2-1.3); Blood Urea Nitrogen 7 mg/dL (9-20); Calcium 9.1 mg/dL (8.4-10.2); Carbon Dioxide 29 mmol/L (22-32); Chloride 102 mmol/L (98-107); Estimated Glomerular Filt Rate > 60 mL/min (>60); Globulin 2.9 g/dL (1.7-4.1); Glucose 116 mg/dL (80-110); HEMOLYSIS < 15 (0-50); Lipase 252 U/L (23-300); Potassium 4.1 mmol/L (3.4-5.1); Sodium 137 mmol/L (137-145); Total Protein 6.8 g/dL (6.3-8.2)
[2024-10-17 09:38] LABS: Appearance Urine UA CLOUDY; Bilirubin Urine UA 2+ (NEGATIVE); Color Urine UA RED; Glucose Urine UA NEGATIVE (Negative); Ketones Urine UA TRACE (NEGATIVE); Leukocyte Esterase Urine UA 2+ (NEGATIVE); Nitrite Urine UA POSITIVE (Negative); Occult Blood Urine UA 3+ (Negative); Protein Urine UA 2+ (Negative); pH Urine UA 8.5 (4.5-8.0)
[2024-10-17 09:40] LABS: Bacteria Urine None Seen; Culture Indicated Urine Specimen Cultured; Ictotest Urine Negative (Negative); RBC Urine >100/HPF (0-5/HPF); Squamous Epithelial Cell Urine None Seen (0-5/HPF); Urine Volume 10mL (spun); WBC Urine 1-5/HPF (0-5/HPF)
[2024-10-17] MEDS: levoFLOXacin 250 MG TABLET 750 MG PO (10:27)
== END 2024-10-17 11:19 | disposition home or self-care (01) ==
PROVIDERS: Emergency Provider Emergency Medicine; PCP Family Medicine
DX: N39.0 Urinary tract infection, site not specified (principal); R31.9 Hematuria, unspecified; Z93.6 Other artificial openings of urinary tract status; Z87.442 Personal history of urinary calculi
CPT/HCPCS: 36415; 74176; 80053; 81001; 83690; 85025; 87086; 99284

== ENCOUNTER 2024-11-01 11:51 | Day surgery (SDC) | payer MEDICARE, SELFPAY ==
[2024-10-07 16:39] VITALS: BMI 24.4
[2024-10-26 14:41] VITALS: BMI 27.3
[2024-11-01] VITALS (7 sets, daily range): BP systolic 123–140; BP diastolic 72–101; PULSE 76–84; RESP 11–16; TEMP 36.2–36.5; O2SAT 94–98; BMI 27.3
--- NOTE | 2024-11-01 | DI.RAD.S_ITS ---
PROCEDURE: XR ABDOMEN 1V INDICATIONS: CYSTOSCOPY TECHNIQUE: One view of the abdomen acquired. COMPARISON: None. FINDINGS: Single digital image from the OR with injection of nephrostomy to shows contrast left upper collecting system and proximal left ureter. No gross abnormalities. IMPRESSION: Negative limited left nephrostogram Dictated by: Jose Maria Juan M.D. on 11/02/2024 at 11:06 Approved by: Jose Maria Juan M.D. on 11/02/2024 at 11:07
[2024-11-01] MEDS: LACTATED RINGERS 1,000 ML 21 ML IV (12:54)
--- NOTE | 2024-11-01 13:36 | PM.PREOP ---
Pre-operative Note COVID-19 COVID-19 status: Not tested Interval Note History & Physical reviewed/Exam performed by Physician: Yes Changes to H&P: Yes H&P completed within 30 days and has changed as indicated here:: Briefly, he has decided to move forward with a right ureteroscopy, laser lithotripsy and right ureteral stent placement. Discussed that if all of his stone is successfully removed, would plan on placing a right ureteral stent without strings for several weeks. Would cap his right PCN upon discharge with plans for him to open it up should he develop severe right flank pain. Should his pain be well controlled, could remove his right PCN in clinic a few days to a week later. Also discussed the need for bladder rest given the large amount of urine w/in his bladder at time of placement. Discussed that this would be managed following his stone.
[2024-11-01] MEDS: CEFAZOLIN 2 GM/100 ML PREMIX 100 ML IV (14:20)
--- NOTE | 2024-11-01 14:43 | SUR.OPER ---
Lithotomy on padded OR bed, head on pillow, arms secured on padded arm boards at <90 degrees abduction. Legs secured in padded yellow fins stirrups.
[2024-11-01] MEDS: iopamidoL 30 ML VIAL 10 ML INTRAURETH (14:49)
--- NOTE | 2024-11-01 16:53 | PM.OP.1 ---
Procedure & Clinicians Procedure: Cystoscopy Right nephrostogram Same procedure as scheduled: No (Unable to complete right ureteroscopy) Indications: 74 y/o M noted to have an 8mm obstructing right mid ureterolith that was unable to be stented in a retrograde fashion on 07 Oct 2024, ultimately leading to transfer to for placement of a right PCNT. He also suffered from acute urinary retention and had a phillip catheter placed w/ immediate drainage of 2L of urine. Discussed treatment options of the aforementioned right ureteral stone to include an attempt at right ureteroscopy, laser lithotripsy and right ureteral stent placement vs a referral to a Urologist that could attempt stone management in an antegrade fashion. He ultimately elected for a cystoscopy w/ attemot at right ureteroscopy with laser lithotripsy and right ureteral stent placement. Surgeon: Sanchez Polanco Click Yes if Unassisted: Yes Anesthesia Type: General Operative Notes Findings: Very large intravesical median lobe, trilobar hyperplasia of prostate, bullous edema throughout bladder trigone consistent w/ an indwelling phillip catheter. Closure Type: not applicable Specimen(s): none sent Applied: catheter Estimated Blood Loss (mL): 20 Blood products transfused: none Procedure in detail: Patient was identified in the preoperative holding area and consent confirmed. He was then brought to the operating room where general anesthesia was induced.? He was then placed in the low lithotomy position. He was then prepped and draped in the usual sterile fashion. A surgical timeout was conducted and all were in agreement. Access to the bladder was obtained via a 21Fr cystoscope.? He was noted to have trilobar hyerplasia of his prostate with a very large intravesical median lobe. Despite attempts to visualize his right ureteral orifice with a 30 degree and 70 degree lens, it was unable to be identified. This was secondary to gross hematuria, the aforementioned large intravesical median lobe and bullous edema consistent with an indwelling phillip catheter for the last few weeks. His right nephrostomy tube was then prepped in the usual sterile fashion and attempts at advancing a 0.035 sensor tip and glide ureteral guidewire through his nephrostomy tube and down his right ureter in an antegrade fashion were unsuccessful. A right nephrostogram was performed in order to aid in this antegrade advancement of the ureteral guidewire and was notable for unremarkable right renal architecture and no contrast extravasation. Therefore, the decision was made to drain the bladder, remove the cystoscope and insert a 22Fr 3-way Janett hematuria catheter. 45cc of sterile water was utilized for balloon insufflation. Anesthesia was reversed, he was extubated in the OR and transferred to the PACU in stable condition for recovery. Complications: none Post-operative Condition: stable Disposition: PACU Plan for aftercare: Discharge home from PACU. Will have him return to Urology clinic on 04 Nov 2024 at 0815 to have his phillip catheter removed. He will return to Urology clinic in the afternoon at 1415 to ensure he is properly emptying his bladder. Will try to coordinate a CT KUB for in between these appointment times to evaluate for interval stone passage.
== END 2024-11-01 17:57 | disposition home or self-care (01) ==
PROVIDERS: PCP Family Medicine; Referring Provider Urology; Visit Provider Urology
PROC: 0TF68ZZ Fragmentation in Right Ureter, Via Natural or Artificial Opening Endoscopic (ICD-10-PCS; CPT 52353; principal; 2024-11-01 13:45)
DX: N20.1 Calculus of ureter (principal); N40.1 Benign prostatic hyperplasia with lower urinary tract symptoms; R33.8 Other retention of urine; R31.0 Gross hematuria
CPT/HCPCS: 50431; 51703; 74018; 76000; J0690; J1100; J2405; J2704; J3010; Q9967

== ENCOUNTER → 2024-11-04 08:34 | Outpatient (CLI) | payer MEDICARE, SELFPAY ==
[2024-10-07 16:39] VITALS: BMI 24.4
--- NOTE | 2024-11-04 08:34 | DI.CT.S_ITS ---
PROCEDURE: CT KIDNEY URETER BLADDER (KUB) INDICATIONS: 74 y/o M w/ right distal ureterolith, eval for passage TECHNIQUE: Axial sections were acquired from the lung bases to the pubic symphysis. Coronal and sagittal reformats were performed. For radiation dose reduction, the following was used: automated exposure control, adjustment of mA and/or kV according to patient size. COMPARISON: [facility], CT, CT KIDNEY URETER BLADDER (KUB), 10/17/2024, 8:04. FINDINGS: Image quality: Diagnostic. Lower Chest: No significant findings. URINARY: Right Kidney: No stones or hydronephrosis. A percutaneous right nephrostomy tube is again noted. Right Ureter: No hydroureter. The distal right ureteral stone previously documented has advanced to just posterior to the bladder external wall margin. It measures up to 1500 Hounsfield units and 6 x 9 mm in maximal dimensions. Left Kidney: No stones or hydronephrosis. Left Ureter: No hydroureter. Bladder: Concentric thickening of the bladder wall. Guo catheter previously present has been removed.. No stones. ABDOMEN: Liver: No contour-deforming solid mass. Gallbladder: Multiple partially calcified small gallstones are present within the gallbladder lumen, previously present. Biliary ducts: No biliary dilation. Not well seen Pancreas: No ductal dilation. Not well seen Spleen: Size is within normal limits. Adrenal Glands: No adrenal nodules. Stomach and Bowel: Normal colonic caliber, without significant wall thickening. Peritoneum: No abnormal intraperitoneal fluid. No free air. Ventral Wall: No hernia. Abdominal Nodes: No enlarged retroperitoneal or mesenteric lymph nodes. Vessels: Aorta and inferior vena cava are normal in size. PELVIS: Pelvic Organs: Unremarkable. Pelvic Nodes: Unremarkable. Miscellaneous: No inguinal hernias are seen. Bones: Unremarkable. IMPRESSION: Right-sided percutaneous nephrostomy tube remains in normal position. The large right-sided distal ureteral stone has advanced slightly to now lie within the distal ureter immediately posterior to the bladder wall. A stone of this size often will not pass without urologic intervention. Size and radiodensity detailed in the body of the report above. Bladder wall concentric thickening. Guo catheter removed. The bladder currently is not distended. Dictated by: Gulshan Silva M.D. on 11/04/2024 at 10:19 Approved by: Gulshan Silva M.D. on 11/04/2024 at 10:28
== END ==
PROVIDERS: PCP Family Medicine; Referring Provider Urology; Visit Provider Urology
DX: N20.1 Calculus of ureter (principal); K80.20 Calculus of gallbladder without cholecystitis without obstruction; N40.1 Benign prostatic hyperplasia with lower urinary tract symptoms; R33.8 Other retention of urine; Z96.0 Presence of urogenital implants
CPT/HCPCS: 51798; 74176; 99214

== ENCOUNTER → 2024-12-02 09:43 | Outpatient (CLI) | payer MEDICARE, SELFPAY ==
[2024-10-07 16:39] VITALS: BMI 24.4
--- NOTE | 2024-12-02 09:43 | DI.CT.S_ITS ---
PROCEDURE: CT PEL WO CON INDICATIONS: 74 y/o M w/ 8mm right distal ureterolith, eval for passage TECHNIQUE: 5 mm thick sections acquired from the iliac crests to the symphysis. 5 mm coronal and sagittal reformats were then performed. For radiation dose reduction, the following was used: automated exposure control, adjustment of mA and/or kV according to patient size. COMPARISON: [facility], CT, CT KIDNEY URETER BLADDER (KUB), 11/04/2024, 8:39. FINDINGS: Image quality: Diagnostic. PELVIS: Peritoneum and Bowel: Bowel loops demonstrate normal wall thickness and caliber. No free fluid or air. Colonic diverticulosis without evidence of diverticulitis. Pelvic Organs: Massive prostatomegaly. Bladder: Diffuse bladder wall thickening and gas. Guo catheter present. Persistent 7 millimeter stone in the distal right ureter . Pelvic Nodes: No enlarged lymph nodes. Miscellaneous: Left inguinal hernia containing a short segment of nonobstructed bowel. Cholelithiasis. No right-sided ureterectasis. Bones: No aggressive osseous abnormality. IMPRESSION: Persistent 7 millimeter stone in the right UVJ, without hydronephrosis. Air within the urinary bladder, likely iatrogenic given the presence of a Guo catheter. Marked prostatomegaly. Dictated by: Joe Maldonado M.D. on 12/03/2024 at 9:15 Approved by: Joe Maldonado M.D. on 12/03/2024 at 9:17
== END ==
LOC: CT 09:43
PROVIDERS: PCP Family Medicine; Referring Provider Urology; Visit Provider Urology
DX: N20.1 Calculus of ureter (principal); K57.90 Diverticulosis of intestine, part unspecified, without perforation or abscess without bleeding; N40.0 Benign prostatic hyperplasia without lower urinary tract symptoms; K40.90 Unilateral inguinal hernia, without obstruction or gangrene, not specified as recurrent; K80.20 Calculus of gallbladder without cholecystitis without obstruction
CPT/HCPCS: 72192

== ENCOUNTER 2025-02-02 11:45 | Day surgery (SDC) | payer MEDICARE, SELFPAY ==
[2025-01-17 14:36] VITALS: BMI 24.4
[2025-01-28 14:38] VITALS: BMI 21.5
[2025-02-02] VITALS (11 sets, daily range): BP systolic 113–155; BP diastolic 58–86; PULSE 60–71; RESP 10–16; TEMP 36.2–37.1; O2SAT 94–100; BMI 21.5
[2025-02-02] MEDS: LACTATED RINGERS 1,000 ML 42 ML IV ×2 (12:32→14:47)
--- NOTE | 2025-02-02 13:44 | PM.PREOP ---
Pre-operative Note COVID-19 COVID-19 status: Not tested Interval Note History & Physical reviewed/Exam performed by Physician: Yes Changes to H&P: No ASA Class (for procedural sedation): II
[2025-02-02] MEDS: CEFAZOLIN 2 GM/100 ML PREMIX 100 ML IV (14:05)
--- NOTE | 2025-02-02 14:33 | SUR.OPER ---
Supine on padded OR bed, head on pillow, arms padded and tucked at sides, legs uncrossed, safety belt at thigh, tape over blanket over lower legs .
[2025-02-02] MEDS: BUPIVACAINE 0.5% W/ EPI (PF) 30 ML VIAL INJ (14:46)
--- NOTE | 2025-02-02 15:30 | P.OP_ITS ---
Operative Date/Time/Diagnoses Date of procedure: 02/02/25 Time of procedure: 15:30 Pre-op diagnosis: Left inguinal hernia Post-op diagnosis: same Procedure & Clinicians Procedure: Laparoscopic left inguinal hernia repair with mesh Same procedure as scheduled: Yes Surgeon: Keith Mcgill Non Licensed Nuclear Equipment Operator: Richard Jenkins Anesthesia Type: General Operative Notes Procedure in detail: The patient was given preoperative antibiotics. The patient was brought to the operating room, placed on the table in the supine position with the arms tucked and general anesthesia was induced. The abdomen was prepped and draped in the usual fashion. A time-out was performed. A 1 cm transverse incision was created superior to the umbilicus and dissection was carried down to the fascia. The fascia was grasped with a Javad clamp to elevate the abdominal wall. The fascia was scored transversely with cautery. A Peon clamp was used to vilchis the peritoneum. The Adelaida port was placed and the abdomen was insufflated to 15 mmHg. The camera was inserted, there was no evidence of any injury from the entry. There was an indirect left inguinal hernia. 5 mm ports were placed under direct vision in the mid left and mid right abdomen. The patient was posi tioned in Trendelenburg. We created left peritoneal flap. The peritoneum was dissected off the left cord structures and the Sharif's ligament was exposed. It did appear that there has been a prior tissue repair and possibly a stitch near the internal ring. A large left Bard mesh was brought in and placed over the defect with the medial edge against Sharif's ligament. We then closed the peritoneal flap with a running 3-0 barbed suture. We took one last look around the abdomen and saw no other abnormalities. The suture was removed and accounted for. The 5 mm ports were removed under direct vision. The abdomen was desufflated. The Adelaida port was removed. Additional local was injected into the fascia and the fascial incision was closed with 2 interrupted 0 Vicryl sutures. The skin incisions were closed with 4 Monocryl, Steri-Strips and Band- Aids. EBL: 5 mL Richard ARMSTRONG provided assistance with exposure, retraction and closure of incisions. Post-operative Condition: stable Disposition: PACU
[2025-02-02] MEDS: fentaNYL 100 MCG/2 ML INJ IV ×2 (16:23→16:33)
[2025-02-02] MEDS: hydrOXYzine 50 MG/ML INJ 25 MG IM (16:24)
[2025-02-02] MEDS: OXYCODONE/ACETAMINOPHEN 5/325 TABLET 1 TAB PO ×2 (16:24→17:16)
[2025-02-02 17:58] LABS: Urine Volume 10mL (spun)
[2025-02-02 18:02] LABS: Amorphous Sediment Urine 1+; Bacteria Urine Occasional (0-1); Culture Indicated Urine Cult Not Indicated; RBC Urine 1-5/HPF (0-5/HPF); Squamous Epithelial Cell Urine None Seen (0-5/HPF); WBC Urine None Seen (0-5/HPF)
== END 2025-02-02 17:49 | disposition home or self-care (01) ==
PROVIDERS: Urology; PCP Family Medicine; Referring Provider Surgery; Visit Provider Surgery
PROC: 0YQ64ZZ Repair Left Inguinal Region, Percutaneous Endoscopic Approach (ICD-10-PCS; CPT 49650; principal; 2025-02-02 13:15)
DX: K40.90 Unilateral inguinal hernia, without obstruction or gangrene, not specified as recurrent (principal)
CPT/HCPCS: 49650; 81015; C1781; J0330; J0690; J1100; J1171; J2250; J2405; J2704; J3010; J3410

== ENCOUNTER → 2025-02-22 09:50 | Outpatient (CLI) | payer MEDICARE, SELFPAY ==
[2025-01-17 14:36] VITALS: BMI 24.4
--- NOTE | 2025-02-22 09:53 | DI.RAD.S_ITS ---
PROCEDURE: XR KNEE 2V WB RIGHT INDICATIONS: Right Knee Pain TECHNIQUE: Weightbearing AP view of the right and left knee and additional two views of the right knee were obtained. COMPARISON: None. FINDINGS: Bones: No acute fractures or dislocations. Patellar alignment is normal on the sunrise view. No suspicious bony lesions. Mild narrowing of the medial femorotibial joints bilaterally and tricompartmental periarticular osteophyte formation. Soft tissues: No knee joint effusions. No suspicious soft tissue calcification. IMPRESSION: Tricompartmental bilateral knee joint degeneration, most notably involving the medial femorotibial joints. Dictated by: Donn Daly [facility] Interpreted: Joe Maldonado MD on 02/22/2025 at 10:51 Transcribed by: RITESH on 02/22/2025 at 11:04 Approved by: Joe Maldonado M.D. on 02/24/2025 at 10:38
== END ==
PROVIDERS: PCP Family Medicine; Referring Provider Family Medicine; Visit Provider Physician Assistant Surgical
DX: M17.11 Unilateral primary osteoarthritis, right knee (principal)
CPT/HCPCS: 73564

== ENCOUNTER 2025-03-02 15:19 | Emergency (ER) | payer MEDICARE, SELFPAY ==
[2025-01-17 14:36] VITALS: BMI 24.4
[2025-03-02] VITALS (12 sets, daily range): BP systolic 125–162; BP diastolic 67–74; PULSE 57–70; RESP 14; TEMP 36.9; O2SAT 92–97; BMI 20.7
[2025-03-02] MEDS: ONDANSETRON 4 MG/2 ML INJ IV (15:59)
--- NOTE | 2025-03-02 16:15 | ED.MALEGU ---
HPI - Male Genitourinary General Chief complaint: Urogenital-Male Stated complaint: Post Op Problem, sent from PCP Time Seen by Provider: 03/02/25 16:05 Source: patient Mode of arrival: Ambulatory History of Present Illness HPI Narrative: 74-year-old gentleman history of kidney stone status post nephrostomy tube placement removal today in [place] by interventional radiologist for which the tube was partially occluded and crusted but removed uneventfully. Patient was driving home when he started have new onset right flank pain I was informed that Dr. Dominguez the interventional radiologist was concerned that patient may be experiencing transient bacteremia falling nephrostomy tube removal and was instructed to come to the ER for further evaluation. Patient denies fever, chills, body aches, chest pain, shortness of breath, or cough and no nausea, vomiting, diarrhea, or constipation. Patient did take oxycodone and Tylenol prior to his arrival here. Other than what is stated 14 point review of system is negative Related Data Home Medications Medication Instructions Recorded Confirmed [VITAMIN C] 1 tab PO Q DAY ##0 11/19/11 02/23/25 [VITAMIN E] 1 tab PO QDAY ##0 11/19/11 02/23/25 Previous Rx's Medication Instructions Recorded tamsulosin 0.4 mg capsule 0.4 mg PO BID #180 caps 01/14/24 ciprofloxacin HCl 500 mg tablet 500 mg PO BID #14 tabs 03/02/25 hydrocodone 5 mg-acetaminophen 325 1 tab PO Q4-6H PRN pain #20 tabs 03/02/25 mg tablet metronidazole 500 mg tablet 500 mg PO Q8H #21 tabs 03/02/25 Allergies Allergy/AdvReac Type Severity Reaction Status Date / Time No Known Drug Allergies Allergy Verified 03/02/25 15:24 Review of Systems Review of Systems ROS Unobtainable: All systems reviewed & are unremarkable except as noted in HPI and below Patient History Medical History (Updated 03/02/25 @ 18:15 by Jose Maria Davidson DO) Nephrolithiasis Constipation Weight gain Kidney stone on right side H/O adenomatous polyp of colon GERD without esophagitis Elevated PSA Seborrheic keratosis Benign prostatic hyperplasia with urinary obstruction (05/21/16) Peripheral neuropathy (08/10/14) Mass of left breast (08/10/14) Surgical History (Updated 01/28/25 @ 14:45 by Hallie Munoz RN) Hx of cystoscopy (10/26/24) History of hernia repair (~1968) Family History Brother Prostate cancer Father Brain tumor Social History marital status: unmarried,single household members: spouse pets and animals: Yes occupational status: previously employed alcohol intake: never substance use type: does not use Smoking Status: Unknown if ever smoked Exam Narrative Exam Narrative: GENERAL: [74] year old patient appears stated age. Well-developed patient, in mild distress. HEAD: Atraumatic. Normocephalic. EYES: Pupils equal round and reactive. Extraocular motions intact. No scleral icterus. No injection or drainage. ENT: Nose without bleeding, purulent drainage. Throat without erythema, tonsillar hypertrophy or exudate. Airway patent. NECK: Trachea midline. Non tender CARDIOVASCULAR: Regular rate and rhythm without murmurs, gallops, or rubs. RESPIRATORY: Clear to auscultation. Breath sounds equal bilaterally. No wheezes, rales, or rhonchi. GASTROINTESTINAL: Abdomen soft, RLQ / R flank pain, nondistended. EXTREMITIES: No edema or joint tenderness. BACK: Nontender without deformity or crepitance. No flank tenderness. NEURO: AOx3. SKIN: No rash or erythema of visible areas Initial Vital Signs Initial Vital Signs: Vital Signs Temperature 98.5 F 03/02/25 15:24 Pulse Rate 57 L 03/02/25 15:24 Respiratory Rate 14 03/02/25 15:24 Blood Pressure 149/72 H 03/02/25 15:24 Pulse Oximetry 92 03/02/25 15:24 Oxygen Delivery Method Room Air 03/02/25 15:24 Course Orders Ordered: Ondansetron HCl (Ondansetron 4 Mg/2 Ml Inj) 4 mg IV NOW PRN PRN Reason: Nausea And Vomiting Last Admin: 03/02/25 15:59 Dose: 4 mg Documented By: RAZIA Ondansetron HCl (Ondansetron 4 Mg Odt) 4 mg PO NOW PRN PRN Reason: Nausea And Vomiting Vital Signs Vital signs: Vital Signs - 8 hr 03/02/25 15:24 Temperature 98.5 F Pulse Rate 57 L Respiratory Rate 14 Blood Pressure 149/72 H Pulse Oximetry 92 Oxygen Delivery Method Room Air MDM - Male Genitourinary Imaging Data CT scan - abdomen/pelvis: Radiologist's Impression: [address] [address] [address] Scan Report Signed Patient: Zach Chen MR#: [id number] : 1950 Acct:[id number] Age/Sex: 74 / M Date of Service: 03/02/25 Loc: ED Accession Number: [id number] Procedure: CT abdomen pelvis w con Ordering Provider: Jose Maria Davidson D.O. PROCEDURE: CT ABDOMEN PELVIS W CON INDICATIONS: R flank/ RLQ pain TECHNIQUE: After the administration of intravenous contrast, axial sections acquired from the lung bases to the pubic symphysis. Coronal and sagittal reformats were performed. For radiation dose reduction, the following was used: automated exposure control, adjustment of mA and/or kV according to patient size. COMPARISON: [facility], CT, CT ABDOMEN PELVIS W CON, 10/07/2024, 9:11. FINDINGS: Image quality: Diagnostic. Peritoneum: No pneumoperitoneum or ascites. Bones: No acute osseous abnormality. Lower Chest: Small hiatal hernia with mild mural thickening of the distal esophagus. Liver: Normal in size and contour. Gallbladder: Layering cholelithiasis (4/29; 2/59). Biliary tree: No intrahepatic or extrahepatic biliary ductal dilatation. Pancreas: Within normal limits. Spleen: Normal in size and contour. Kidneys: Status post presumed right nephroureteral stent placement with a single focus of gas in the right inferior calyx (4/47). Layering calculi versus contrast in the right renal pelvis measuring up to 1.4 cm in length (2/56; 4/38; 643 HU). No hydronephrosis. Fat stranding around the right renal pelvis, likely secondary to recent nephroureteral stent presence. Adrenals: No adrenal nodularity. Bladder: Decompressed with a Guo catheter. Bladder wall thickening up to 1.2 cm. : Enlarged and heterogenous prostate measuring 6.8 cm in the transverse dimension indenting the base of the urinary bladder (5/64). Stomach: Normal in size and contour. Bowel: No bowel obstruction. Normal appendix (4/30). Mild mural thickening of the sigmoid colon in a background of colonic diverticulosis (4/50). Additional mild mural thickening of the descending and transverse colon without significant diverticulosis. Lymph Nodes: No retroperitoneal, mesenteric, or inguinal lymphadenopathy. Vascular: No abdominal aortic aneurysm. The visualized arterial vasculature is patent. Soft Tissues: No acute abnormality. IMPRESSION: 1. Status post right nephroureteral stent placement with nonobstructive layering right pelvic nephrolithiasis. No hydronephrosis. 2. Bladder wall thickening, which can be seen with cystitis, chronic bladder outlet obstruction (in the setting of enlarged prostate gland), or neoplastic infiltration. 3. Cholelithiasis. 4. Small hiatal hernia with possible esophagitis. 5. Likely chronic diverticulitis of the sigmoid colon. 6. Mild mural thickening of the mid-distal colon; consider an underlying colitis and correlation with prior colonoscopy records. [address] [address] [address] Scan Report Signed Patient: Zach Chen MR#: [id number] : 1950 Acct:[id number] Age/Sex: 74 / M Date of Service: 03/02/25 Loc: ED Accession Number: [id number] Procedure: CT chest wo con Ordering Provider: Jose Maria Davidson D.O. PROCEDURE: CT CHEST WO CON INDICATIONS: LOWER LOBE NODULE. TECHNIQUE: Noncontrast 2.0-2.5 mm thick sections acquired from the pulmonary apices to the posterior costophrenic angles. 7 mm thick axial MIP and 5 mm coronal and sagittal reformats were then acquired. For radiation dose reduction, the following was used: automated exposure control, adjustment of mA and/or kV according to patient size. COMPARISON: None. FINDINGS: Image quality: Diagnostic. Thyroid: Within normal limits. Cardiac: Heart size within normal limits. No pericardial effusion. Mild triple-vessel coronary artery calcifications. Aorta: Thoracic aortic diameter within normal limits. Pulmonary Artery: Main pulmonary artery diameter within normal limits. Lungs: No focal lung consolidation. Unchanged 6 mm left lower lobe solid nodule, dating back to 10/07/2024. Pleura: No pneumothorax or pleural effusion. Airways: The trachea and mainstem bronchi are patent. Lymph Nodes: No mediastinal, hilar, or axillary lymphadenopathy. Esophagus: Small hiatal hernia with mild mural thickening of the distal thoracic esophagus (). Bones: No acute osseous abnormality. Upper Abdomen: Please see the same-day CT abdomen pelvis without contrast report for further details. IMPRESSION: 1. Unchanged left lower lobe 6 mm solid nodule. 2. Small hiatal hernia with mild mural thickening of the esophagus, which can be seen with esophagitis. 3. No other acute CT abnormality of the chest. Fleischner Society criteria for SOLID lung nodule followup. Nodule size (mm)Low-risk patientHigh-risk patient<6 (single or multiple)No routine followup.Optional CT at 12 months. 6-8 (single or multiple)CT at 6-12 months, then optional CT at 18-24 mo.CT at 6-12 months, then CT at 18-24 months. >8 (single)CT at 3 months, PET-CT, or biopsy. Same as for low-risk pts. >8 (multiple)CT at 3-6 months, then optional CT at 18-24 mo.CT at 3-6 months, then CT at 18-24 months. Fleischner Society criteria for SUB-SOLID lung nodule followup. Solitary pure ground-glass nodules<6 mm (ground glass or part solid)No followup needed. 6 mm or larger (ground glass)CT at 6-12 months to confirm persistence, then CT every 2 years until 5 years.6 mm or larger (part solid)CT at 3-6 months to confirm persistence, then annual CT until 5 years if unchanged and solid component remains <6 mm. Multiple sub-solid nodules<6 mmCT at 3-6 months, then CT consider at 2 & 4 years for high risk patients. [address] at 3-6 months. Subsequent management based on most suspicious lesions. Recommendations do not apply to lung cancer screening, patients with immunosuppression, or patients with known primary cancer. Dictated by: Jericho Newman M.D. on 03/02/2025 at 17:42 Approved by: Jericho Newman M.D. on 03/02/2025 at 17:46 MDM Narrative Medical decision making narrative: All lab work, vital signs, nurse triage note, medication list, Ct scans and xrays and all previous ER visits reviewed. Patient given Dilaudid, Rocephin, and lactated Ringer's [address] scan showed status post right nephroureteral stent placement with nonobstructive layering right pelvic nephrolithiasis no hydronephrosis. Bladder wall thickening which can be seen with cystitis or chronic bladder outlet obstruction. Small hiatal hernia with possible esophagitis likely chronic diverticulitis of the sigmoid colon. And mild mural thickening of the mid distal colon. Patient will be discharged on Cipro and Flagyl and hydrocodone. Small hiatal hernia with mild mural thickening of the esophagus which can be seen with the esophagitis. Lab work shows white count of 13 with left shift lactic acid 2.4 procalcitonin of 0.04. Case was discussed with interventional Radiology Dr. Faisal Dominguez who agreed with care plan and to send patient home on antibiotics. Differential diagnosis includes kidney stone, kidney infection, sepsis, electrolyte derangement, diverticulitis, and pancreatitis. Discharge Plan Departure Patient Disposition: Home Clinical Impression: Diverticulitis, Acute UTI, Lung nodule Instructions: DI for Diverticulitis Activity Restrictions/Additional Instructions: Return with new or worsening symptoms. Take your medicines as directed. Follow up with PCP in 1-2 weeks for re-evaluation. Prescriptions: New ciprofloxacin HCl 500 mg tablet 500 mg PO BID Qty: 14 0RF metronidazole 500 mg tablet 500 mg PO Q8H Qty: 21 0RF hydrocodone-acetaminophen 5-325 mg tablet 1 tab PO Q4-6H PRN (Reason: pain) Qty: 20 0RF No Action [VITAMIN C] 1 tab PO Q DAY Qty: 0 [VITAMIN E] 1 tab PO QDAY Qty: 0 tamsulosin 0.4 mg capsule 0.4 mg PO BID Qty: 180 3RF methylprednisolone acetate [Depo-Medrol] 40 mg/mL suspension 40 mg IM ONCE Qty: 1 0RF Referrals: [place] MD [Primary Care Provider] - Stand Alone Forms: Patient Portal/API/Survey
--- NOTE | 2025-03-02 16:18 | DI.CT.S_ITS ---
PROCEDURE: CT ABDOMEN PELVIS W CON INDICATIONS: R flank/ RLQ pain TECHNIQUE: After the administration of intravenous contrast, axial sections acquired from the lung bases to the pubic symphysis. Coronal and sagittal reformats were performed. For radiation dose reduction, the following was used: automated exposure control, adjustment of mA and/or kV according to patient size. COMPARISON: [facility], CT, CT ABDOMEN PELVIS W CON, 10/07/2024, 9:11. FINDINGS: Image quality: Diagnostic. Peritoneum: No pneumoperitoneum or ascites. Bones: No acute osseous abnormality. Lower Chest: Small hiatal hernia with mild mural thickening of the distal esophagus. Liver: Normal in size and contour. Gallbladder: Layering cholelithiasis (4/29; 2/59). Biliary tree: No intrahepatic or extrahepatic biliary ductal dilatation. Pancreas: Within normal limits. Spleen: Normal in size and contour. Kidneys: Status post presumed right nephroureteral stent placement with a single focus of gas in the right inferior calyx (4/47). Layering calculi versus contrast in the right renal pelvis measuring up to 1.4 cm in length (2/56; 4/38; 643 HU). No hydronephrosis. Fat stranding around the right renal pelvis, likely secondary to recent nephroureteral stent presence. Adrenals: No adrenal nodularity. Bladder: Decompressed with a Guo catheter. Bladder wall thickening up to 1.2 cm. : Enlarged and heterogenous prostate measuring 6.8 cm in the transverse dimension indenting the base of the urinary bladder (5/64). Stomach: Normal in size and contour. Bowel: No bowel obstruction. Normal appendix (4/30). Mild mural thickening of the sigmoid colon in a background of colonic diverticulosis (4/50). Additional mild mural thickening of the descending and transverse colon without significant diverticulosis. Lymph Nodes: No retroperitoneal, mesenteric, or inguinal lymphadenopathy. Vascular: No abdominal aortic aneurysm. The visualized arterial vasculature is patent. Soft Tissues: No acute abnormality. IMPRESSION: 1. Status post right nephroureteral stent placement with nonobstructive layering right pelvic nephrolithiasis. No hydronephrosis. 2. Bladder wall thickening, which can be seen with cystitis, chronic bladder outlet obstruction (in the setting of enlarged prostate gland), or neoplastic infiltration. 3. Cholelithiasis. 4. Small hiatal hernia with possible esophagitis. 5. Likely chronic diverticulitis of the sigmoid colon. 6. Mild mural thickening of the mid-distal colon; consider an underlying colitis and correlation with prior colonoscopy records. Dictated by: Jericho Newman M.D. on 03/02/2025 at 17:32 Approved by: Jericho Newman M.D. on 03/02/2025 at 17:42
[2025-03-02] MEDS: LACTATED RINGERS 1,000 ML 1000 ML IV (16:32)
[2025-03-02] MEDS: HYDROMORPHONE 0.5 MG INJ IV (16:34)
[2025-03-02] MEDS: cefTRIAXone 1,000 MG in SODIUM CHLORIDE 0.9% 100 ML 200 MG IV (16:36)
--- NOTE | 2025-03-02 16:48 | DI.CT.S_ITS ---
PROCEDURE: CT CHEST WO CON INDICATIONS: LOWER LOBE NODULE. TECHNIQUE: Noncontrast 2.0-2.5 mm thick sections acquired from the pulmonary apices to the posterior costophrenic angles. 7 mm thick axial MIP and 5 mm coronal and sagittal reformats were then acquired. For radiation dose reduction, the following was used: automated exposure control, adjustment of mA and/or kV according to patient size. COMPARISON: None. FINDINGS: Image quality: Diagnostic. Thyroid: Within normal limits. Cardiac: Heart size within normal limits. No pericardial effusion. Mild triple-vessel coronary artery calcifications. Aorta: Thoracic aortic diameter within normal limits. Pulmonary Artery: Main pulmonary artery diameter within normal limits. Lungs: No focal lung consolidation. Unchanged 6 mm left lower lobe solid nodule, dating back to 10/07/2024. Pleura: No pneumothorax or pleural effusion. Airways: The trachea and mainstem bronchi are patent. Lymph Nodes: No mediastinal, hilar, or axillary lymphadenopathy. Esophagus: Small hiatal hernia with mild mural thickening of the distal thoracic esophagus (). Bones: No acute osseous abnormality. Upper Abdomen: Please see the same-day CT abdomen pelvis without contrast report for further details. IMPRESSION: 1. Unchanged left lower lobe 6 mm solid nodule. 2. Small hiatal hernia with mild mural thickening of the esophagus, which can be seen with esophagitis. 3. No other acute CT abnormality of the chest. Fleischner Society criteria for SOLID lung nodule followup. Nodule size (mm)Low-risk patientHigh-risk patient<6 (single or multiple)No routine followup.Optional CT at 12 months. 6-8 (single or multiple)CT at 6-12 months, then optional CT at 18-24 mo.CT at 6-12 months, then CT at 18-24 months. >8 (single)CT at 3 months, PET-CT, or biopsy. Same as for low-risk pts. >8 (multiple)CT at 3-6 months, then optional CT at 18-24 mo.CT at 3-6 months, then CT at 18-24 months. Fleischner Society criteria for SUB-SOLID lung nodule followup. Solitary pure ground-glass nodules<6 mm (ground glass or part solid)No followup needed. 6 mm or larger (ground glass)CT at 6-12 months to confirm persistence, then CT every 2 years until 5 years.6 mm or larger (part solid)CT at 3-6 months to confirm persistence, then annual CT until 5 years if unchanged and solid component remains <6 mm. Multiple sub-solid nodules<6 mmCT at 3-6 months, then CT consider at 2 & 4 years for high risk patients. [address] at 3-6 months. Subsequent management based on most suspicious lesions. Recommendations do not apply to lung cancer screening, patients with immunosuppression, or patients with known primary cancer. Dictated by: Jericho Newman M.D. on 03/02/2025 at 17:42 Approved by: Jericho Newman M.D. on 03/02/2025 at 17:46
[2025-03-02 16:51] LABS: Alanine Aminotransferase 23 IU/L (<50); Albumin 4.9 g/dL (3.5-5.0); Albumin Globulin Ratio 1.5 (1.0-2.8); Alkaline Phosphatase 84 U/L (38-126); Aspartate Aminotransferase 31 IU/L (17-59); BUN Creatinine Ratio 15.3 (6-22); Blood Urea Nitrogen 11 mg/dL (9-20); Calcium 9.6 mg/dL (8.4-10.2); Carbon Dioxide 26 mmol/L (22-32); Chloride 101 mmol/L (98-107); Estimated Glomerular Filt Rate > 60 mL/min (>60); Globulin 3.2 g/dL (1.7-4.1); Glucose 134 mg/dL (70-99); HEMOLYSIS < 15 (0-50); Lipase 158 U/L (23-300); Potassium 3.6 mmol/L (3.4-5.1); Sodium 139 mmol/L (137-145); Total Protein 8.1 g/dL (6.3-8.2)
[2025-03-02 16:56] LABS: Add Manual Diff / Slide Review NO; Basophils Absolute Auto 100 /uL (0-100); Basophils Percent Auto 0.5 % (0-2); Eosinophils Absolute Auto 0 /uL (0-450); Eosinophils Percent Auto 0.2 % (2-4); Hematocrit 45.4 % (41-53); Hemoglobin 14.9 g/dL (13.5-17.5); Lymphocytes Absolute Auto 1300 /uL (1100-4500); Lymphocytes Percent Auto 9.8 % (25-40); Mean Corpuscular HGB Conc 32.8 % (30-36); Mean Corpuscular Hemoglobin 30.5 PG (26-34); Monocytes Absolute Auto 600 /uL (0-900); Monocytes Percent Auto 4.4 % (3-14); Neutrophils Absolute Auto 11100 /uL (1500-7000); Neutrophils Percent Auto 85.1 % (50-75); Platelet Count 414 X10^3/uL (150-400); Red Blood Cell Count 4.89 X10^6/uL (4.5-5.9); Red Cell Distribution Width 13.1 % (11.6-14.8)
[2025-03-02 17:22] LABS: INR 0.9 (0.9-1.3); Prothrombin Time 10.7 SECONDS (9.4-12.5)
[2025-03-02 17:25] LABS: PTT Partial Thromboplastin Tim 29 SECONDS (25.1-36.5)
[2025-03-02 17:25] LABS: Urine Volume 10mL (spun)
[2025-03-02 17:26] LABS: Bacteria Urine Few (2-10); RBC Urine 10-30/HPF (0-5/HPF); Squamous Epithelial Cell Urine 0-1 /HPF (0-5/HPF); WBC Urine 5-10/HPF (0-5/HPF)
[2025-03-02 17:26] LABS: Lactate (Lactic Acid) 2.4 mmol/L (0.7-2.1)
[2025-03-02 17:27] LABS: Culture Indicated Urine Specimen Cultured
[2025-03-02] MEDS: HYDROMORPHONE 1 MG INJ IV (18:35)
[2025-03-02 18:52] LABS: Reflexed Lactate in 2 Hours Y
== END 2025-03-02 19:01 | disposition home or self-care (01) ==
PROVIDERS: Emergency Provider Family Medicine; PCP Family Medicine
DX: K57.92 Diverticulitis of intestine, part unspecified, without perforation or abscess without bleeding (principal); N39.0 Urinary tract infection, site not specified; R91.1 Solitary pulmonary nodule
CPT/HCPCS: 71250; 74177; 80053; 81003; 81015; 83605; 83690; 84145; 85025; 85610; 85730; 87040; 87077; 87086; 87186; 96361; 96365; 96375; 96376; 99284; J0696; J1171; J2405; Q9967

== ENCOUNTER → 2025-03-18 11:04 | Outpatient (CLI) | payer MEDICARE, SELFPAY ==
[2025-01-17 14:36] VITALS: BMI 24.4
[2025-03-18 12:14] LABS: Appearance Urine UA CLOUDY; Bilirubin Urine UA NEGATIVE (NEGATIVE); Color Urine UA YELLOW; Glucose Urine UA NEGATIVE (Negative); Ketones Urine UA NEGATIVE (NEGATIVE); Leukocyte Esterase Urine UA 2+ (NEGATIVE); Nitrite Urine UA POSITIVE (Negative); Occult Blood Urine UA 3+ (Negative); Protein Urine UA 3+ (Negative); Specific Gravity Urine UA 1.025 (1.000-1.035); Urobilinogen Urine UA 0.2 E.U./dL (0.2); pH Urine UA 6.5 (4.5-8.0)
[2025-03-18 12:19] LABS: Urine Volume 10mL (spun)
[2025-03-18 12:20] LABS: Bacteria Urine Many (>30); Culture Indicated Urine Specimen Cultured; RBC Urine 5-10/HPF (0-5/HPF); Squamous Epithelial Cell Urine None Seen (0-5/HPF); WBC Urine >100/HPF (0-5/HPF)
== END ==
PROVIDERS: PCP Family Medicine; Referring Provider Family Medicine; Visit Provider Family Medicine
DX: N40.1 Benign prostatic hyperplasia with lower urinary tract symptoms (principal); N39.0 Urinary tract infection, site not specified
CPT/HCPCS: 81001; 87077; 87086; 87186

== ENCOUNTER → 2025-04-04 15:59 | Outpatient (CLI) | payer MEDICARE, SELFPAY ==
[2025-01-17 14:36] VITALS: BMI 24.4
[2025-04-04 16:10] LABS: Appearance Urine UA SL CLOUDY; Bilirubin Urine UA NEGATIVE (NEGATIVE); Color Urine UA PINK; Glucose Urine UA NEGATIVE (Negative); Ketones Urine UA NEGATIVE (NEGATIVE); Leukocyte Esterase Urine UA 3+ (NEGATIVE); Nitrite Urine UA NEGATIVE (Negative); Occult Blood Urine UA 3+ (Negative); Protein Urine UA 2+ (Negative); Urobilinogen Urine UA 0.2 E.U./dL (0.2)
[2025-04-04 16:18] LABS: Bacteria Urine Few (2-10); Culture Indicated Urine Specimen Cultured; RBC Urine 10-30/HPF (0-5/HPF); Squamous Epithelial Cell Urine 0-1 /HPF (0-5/HPF); Urine Volume 10mL (spun); WBC Urine 10-30/HPF (0-5/HPF)
== END ==
PROVIDERS: PCP Family Medicine; Visit Provider Urology
DX: R39.9 Unspecified symptoms and signs involving the genitourinary system (principal)
CPT/HCPCS: 81001; 87077; 87086; 87186

== ENCOUNTER → 2025-05-02 08:46 | Outpatient (CLI) | payer MEDICARE, SELFPAY ==
[2025-04-21 11:35] VITALS: BMI 24.4
== END ==
PROVIDERS: PCP Family Medicine; Visit Provider Urology
DX: N40.1 Benign prostatic hyperplasia with lower urinary tract symptoms (principal)
CPT/HCPCS: 87077; 87086

== ENCOUNTER 2025-07-19 06:24 | Day surgery (SDC) | payer MEDICARE, SELFPAY ==
[2025-06-14 16:15] VITALS: BMI 24.4
[2025-07-13 09:28] VITALS: BMI 20.3
[2025-07-19 06:45] VITALS: BP 176/93; PULSE 65; RESP 16; TEMP 36.4; O2SAT 99
[2025-07-19 06:46] VITALS: BMI 19.9
[2025-07-19] MEDS: LACTATED RINGERS 1,000 ML 42 ML IV (07:03)
[2025-07-19] MEDS: ACETAMINOPHEN 325 MG TABLET 975 MG PO (07:07)
--- NOTE | 2025-07-19 07:39 | PM.PREOP ---
Pre-operative Note COVID-19 COVID-19 status: Not tested Interval Note History & Physical reviewed/Exam performed by Physician: Yes Changes to H&P: Yes H&P completed within 30 days and has changed as indicated here:: The DV5 robot was not functional the morning of his surgery, therefore, his surgery was rescheduled to a later date.
--- NOTE | 2025-07-19 08:06 | SUR.PREOP ---
Due to [employer] needing software update and unable to use; case will be cancelled today; pt to d/c home after 1 L IVF and phillip change
--- NOTE | 2025-07-19 11:12 | CM.DANOTE ---
Initial DCP Assessement Visit Note Reviewed EMR and team rounds for pt's medical status and updates. Pt resides alone in his own home in [facility], as he left AMA this morning before being seen by this GOAT DRIVER, OT, and PT. Pt is recently as of 7-months ago. He had his son pick him up, no further CM needs indicated at this time. Payor: [facility] PCP: Dr. Clark Pt with a hx of CVA, HTN, presented to the ED with AMS after he suddenly started talking gibberish while visiting with a neighbor yesterday afternoon. Neighbor is also DPOA-HC. CT angio head/neck was negative for abnormalities. Plan was made to admit to OBS to work with therapies in the am. Discharge Planning/Care Management Pre-Anesthesia Assessment Start: 07/13/25 09:28 Freq: Status: Active Protocol: Document 07/13/25 09:28 [facility] (Rec: 07/13/25 09:40 CAB [id number]) Pre-Anesthesia Assessment PAC Comment Chart review 07/13/25 Patient Information Chart Review Reviewed Via [facility] [place] Provider Seen Specialist in Yes Last 12 Months Specialist Seen Emergency,General surgeon,Urologist Primary Language Kiswahili Preferred Language Kiswahili Bilingual Sales Assistant Required No Height 177.8 cm Weight 64.41 kg Body Mass Index (BMI 20.3 ) Hx Anesthesia No Reactions Hx Family Anesthesia No Reaction Hx Malignant No Hyperthermia Hx Blood Transfusion No Reaction Anesthesia Review No Requested Youtuber No alcohol intake never Alcohol intake 0 drinks per day frequency Substance Use Type [ does not use #R] Patient is No completely paralyzed or completely immobile Mental Status Oriented to own ability Is patient on oxygen No ? Hx Sleep Apnea No CPAP/BIPAP use not prescribed Currently Taking a No Beta Jef Anti-Coagulant No Therapy Has a Pickle Solution Maker No Cardiac Testing No Hx Pacemaker/ICD No Pacemaker Rep No Required? Cardiac Clearance No Received Urinary Catheter Yes Present Hx Urinary Self No Catheterization Diabetes No Presence of external Yes: Right nephrostomy tube (capped). plate in left or internal medical wrist, phillip catheter devices? and year fall 2019 received flu vaccine Received a COVID Yes vaccine? Marital Status Lives With spouse Patient Discharge Return Home Plan Description Do You Have Any No Spiritual Beliefs That May Affect Your HC Choices? Do You Have Any Yes Cultural Practices That May Affect Your HC Choices? Emergency Contact Migdalia Germain - Name Emergency Contact [phone] Phone Number Advance Directives? Yes Advance Directives No on File
== END 2025-07-19 06:25 | disposition home or self-care (01) ==
LOC: OR 06:25 → AC 08:50
PROVIDERS: PCP Family Medicine; Referring Provider Urology; Visit Provider Urology
DX: N40.1 Benign prostatic hyperplasia with lower urinary tract symptoms (principal); Z53.8 Procedure and treatment not carried out for other reasons
CPT/HCPCS: 55867; J0330; J1100; J1171; J2405; J2704; J3010; J7120

== ENCOUNTER 2025-07-26 10:17 | Day surgery (SDC) | payer MEDICARE, SELFPAY ==
[2025-06-14 16:15] VITALS: BMI 24.4
[2025-07-19 13:32] VITALS: BMI 20.3
[2025-07-26] VITALS (7 sets, daily range): BP systolic 111–155; BP diastolic 65–88; PULSE 67–80; RESP 10–16; TEMP 36.3–36.4; O2SAT 92–97; BMI 20.3
--- NOTE | 2025-07-26 | DI.RAD.S_ITS ---
PROCEDURE: XR PELVIS 1-2V INDICATIONS: LOOKING FOR FORIEGN BODY TECHNIQUE: Single AP view of the pelvis acquired. COMPARISON: [facility], CT, CT ABDOMEN PELVIS W CON, 03/02/2025, 16:47. FINDINGS: Bones: No acute fractures or dislocations. No suspicious bony lesions. Generalized osteopenia. Degenerative changes in the included spine. Soft tissues: Visualized bowel gas pattern is normal. No suspicious soft tissue calcifications. Guo catheter projects over the lower pelvis. IMPRESSION: Guo catheter is present. No other radiopaque foreign body is seen. Approved by: Jose Roberto Haley M.D. on 07/26/2025 at 18:32
--- NOTE | 2025-07-26 | PATH_ITS ---
[facility] Accession Number: [id number] No. of containers..01 Tissue . 01 Material submitted: . prostate - PROSTATE . 01 Diagnosis: PROSTATE, PROCEDURE NOT SPECIFIED (WEIGHT 113 GRAMS): Benign prostatic tissue with glandular and stromal hyperplasia. Patchy mild acute and chronic prostatitis. MRV 08/03/2025 1608 Local . 01 Electronically signed: . Janneth Alcantar MD, Pathologist NPI- [id number] . 01 Gross description: . Received in formalin labeled with two patient identifiers and prostate, and consists of an 8.5 x 6.5 x 4.2 cm, 113 gram, multilobulated, mullins, shaggy, irregular prostate tissue which is inked on the external surface and serially sectioned to show a white, multinodular, focally cystic prostatic parenchyma. There are no distinct nodules or areas of discoloration appreciated. Opinion Polls Survey Worker sections are submitted in cassettes A1-A8 (two sections in each cassette). ([id number]) /ROBBIE 07/27/20252008 Local . 01 Pathologist provided ICD-10: N40.1, R33.9 . 01 CPT . 116982 Specimen Comment: A courtesy copy of this report has been sent to [facility] Pathology Performed at: [address], [place], [place] [id number] MD Dixon Gore MD Phone: [phone]
[2025-07-26] MEDS: LACTATED RINGERS 1,000 ML 21 ML IV ×3 (11:02→14:17)
[2025-07-26] MEDS: ACETAMINOPHEN 325 MG TABLET 975 MG PO (11:05)
--- NOTE | 2025-07-26 13:06 | PM.PREOP ---
Pre-operative Note COVID-19 COVID-19 status: Not tested Interval Note History & Physical reviewed/Exam performed by Physician: Yes Changes to H&P: No
--- NOTE | 2025-07-26 13:25 | PM.HP.IH.1 ---
History of Present Illness History of Present Illness Date Patient Seen: 07/26/25 Time Patient Seen: 13:26 Chief complaint: Discuss urinary habits, phillip catheter management Narrative: 75 y/o M returns to Urology clinic to discuss his urinary habits and phillip catheter management. Briefly, he presented to ER on 07 Oct 2024 for evaluation of roughly 30 days of intermittent right flank pain w/ nausea and vomiting. He also found it more and more difficult to urinate despite taking Tamsulosin 0.8mg daily. A CT Abd/Pel was obtained that noted an 8mm right mid ureterolith w/ resultant upstream moderate to severe hydroureteronephrosis and concern for fornyceal rupture as well as a very distended bladder. A phillip catheter was placed w/ immediate drainage of 2L of urine. An attempt at a cystoscopy w/ right retrograde ureteral stent placement was ultimately unsuccessful, therefore, he was transferred to for attempt at a right PCNU placement. Unfortunately, IR did not attempt placement of a PCNU and simply placed a right PCN tube. He is now s/p a cystoscopy w/ unsuccessful attempt at right ureteroscopy w/ laser lithotripsy on 01 Nov 2024. I was unable to access his right ureteral orifice secondary to his large intravesical median lobe, gross hematuria and bullous edema w/in his bladder consistent w/ phillip catheter changes. He was referred to stone center and his stone and right PCN tube have now both been removed. Regarding his urinary habits, he is currently taking Tamsulosin 0.8mg daily and has been unable to volitionally void for the last 8 months. He has been returning to Urology clinic on a monthly basis to exchange his phillip catheter and returns today for his preoperative evaluation prior to a robotic simple prostatectomy. Of note, he does not have a prior Cardiac history and does not regularly consume blood thinners or NSAID's. He did have a prior laparoscopic left inguinal hernia repair with mesh in January of 2025. [facility] Medical History Phillip catheter in place Nephrolithiasis Constipation Weight gain Kidney stone on right side H/O adenomatous polyp of colon GERD without esophagitis Elevated PSA Seborrheic keratosis Benign prostatic hyperplasia with urinary obstruction (05/21/16) Peripheral neuropathy (08/10/14) Mass of left breast (08/10/14) Surgical History Hx of left inguinal hernia repair (02/02/25) Hx of cystoscopy (10/26/24) History of hernia repair (~1968) Family History Brother Prostate cancer Father Brain tumor Social History marital status: unmarried,single household members: spouse pets and animals: Yes occupational status: previously employed alcohol intake: never substance use type: does not use Meds Home Medications and Allergies Home Medications ?Medication ?Instructions ?Recorded ?Confirmed ?Type [VITAMIN C] 1 tab PO Q DAY ##0 11/19/11 07/26/25 History [VITAMIN E] 1 tab PO QDAY ##0 11/19/11 07/26/25 History tamsulosin 0.4 mg capsule 0.4 mg PO BID #180 caps 01/14/24 07/26/25 Rx magnesium gluconate 30 mg (550 mg) 30 mg PO DAILY 04/04/25 07/26/25 History tablet acetaminophen 500 mg tablet 1,000 mg PO QID 05/02/25 07/26/25 History (Tylenol Extra Strength) nitrofurantoin 1 cap PO BID 07/26/25 07/26/25 History monohydrate/macrocrystals 100 mg capsule Allergies Allergy/AdvReac Type Severity Reaction Status Date / Time No Known Drug Allergies Allergy Verified 07/26/25 10:40 Review of Systems Review of Systems Narrative: CONSTITUTIONAL: Denies weight loss, fevers, chills. HEENT: Denies change in vision, hearing. RESP: Denies SOB, cough. CV: Denies palpations, CP. GI: Denies abdominal pain, nausea, vomiting, diarrhea. MSK: Denies myalgia, joint pain. SKIN: Denies rash, pruritus. NEURO: Denies headache, syncope. PSYCH: Denies recent change in mood, anxiety, depression. Exam Vital Signs (past 8 hours): - 07/26/25 10:47 Temperature 97.6 F Pulse Rate 68 Respiratory Rate 16 Blood Pressure 148/85 H Pulse Oximetry 97 Narrative Exam Narrative: GEN: Alert and oriented X3. No acute distress. Well-nourished. EYES: PERRLA, EOMI. HENT: Moist mucus membranes, no scleral icterus, normal neck ROM. RESP: Unlabored breathing, equal rise and fall of chest bilaterally, no cyanosis appreciated. CV: No peripheral edema, unremarkable heart rate. ABD: Soft, non-tender, non-distended, no palpable masses. : Circumcised penis, no urethral discharge, no meatal stenosis. Under sterile technique, an 18Fr coude catheter was placed w/ relative ease and immediate drainage of clear yellow urine. 10cc of sterile water was utilized for balloon insufflation. EXT: No edema, clubbing or cyanosis. SKIN: No rashes or lesions. NEURO: No focal neurologic deficits, CN II-XII grossly intact. PSYCH: Cooperative, appropriate mood and affect. Assessment & Plan Assessment and plan (1) BPH loc w urin obs/LUTS: Problem details: 75 y/o M noted to have symptoms consistent w/ BPH and LUTS who has failed monthly voiding trials since Sep. Discussed at length that he has a very large prostate (~200g based upon CT imaging). Discussed treatment options to include a staged TURP, Aquablation, HoLEP, robotic or open simple prostatectomy. Discussed that I would not recommend an Aquablation or staged TURP due to the large intravesical median lobe and large prostate size. His phillip catheter was easily exchanged in clinic today. He was previously scheduled for a robotic simple prostatectomy at , however, would strongly prefer to have this surgery performed at [facility]. Discussed risks of the procedure to include but not limited to pain, bleeding, infection, poor cosmesis, fascial dehiscence, blood transfusion, persistent bladder or prostate urinary extravasation requiring prolonged catheter usage and/or placement of bilateral PCN's or an IR drain, injury to either ureteral orifice requiring a ureteral stent or ureteral reimplantation or bilateral PCN's, injury to bowel requiring resection and reanastomosis with the assistance of General Surgery or a colostomy or ileostomy creation with the hopes of being able to reverse this in the future, injury to blood vessels leading to life-threatening bleeding, inherent risks of anesthesia. Status: Acute (2) Acute urinary retention: Status: Acute Plan: Please see plan above under BPH. Time-Based Coding :: [TOTAL MINUTES] spent with patient and on the chart (including review of chart, obtaining history, exam, reviewing outside data, placing orders, documenting exam and treatment plan, and counseling patient) on [DATE]. PROFEE Software Installation Engineer Document charge(s): No
[2025-07-26] MEDS: GENTAMICIN 300 MG in SODIUM CHLORIDE 0.9% 100 ML 107.5 MG IV (14:01)
--- NOTE | 2025-07-26 14:14 | SUR.OPER ---
Supine on padded OR bed, on pink pad head on pillow, arms padded and tucked at sides, safety strap across chest, legs uncrossed, safety belt at thigh, tape over blanket over lower legs .
[2025-07-26] MEDS: LIDOCAINE 1% 20 ML INJ (14:22)
--- NOTE | 2025-07-26 14:41 | SUR.OPER ---
Supine on padded OR bed, head on pillow, arms padded and tucked at sides, legs uncrossed, safety belt at thigh, tape over blanket over lower legs .
--- NOTE | 2025-07-26 18:19 | PM.OP.1 ---
Operative Date/Time/Diagnoses Date of procedure: 07/26/25 Time of procedure: 14:00 Pre-op diagnosis: Benign prostatic hyperplasia with lower urinary tract symptoms Post-op diagnosis: same Procedure & Clinicians Procedure: Robotic simple prostatectomy Same procedure(s) as scheduled: Yes Indications: 75 y/o M noted to have symptoms consistent w/ BPH and LUTS who has failed monthly voiding trials since Sep. Discussed at length that he has a very large prostate (~200g based upon CT imaging). Discussed treatment options to include a staged TURP, Aquablation, HoLEP, robotic or open simple prostatectomy. Discussed that I would not recommend an Aquablation or staged TURP due to the large intravesical median lobe and large prostate size. His phillip catheter was easily exchanged in clinic today. He was previously scheduled for a robotic simple prostatectomy at , however, would strongly prefer to have this surgery performed at [facility]. Discussed risks of the procedure to include but not limited to pain, bleeding, infection, poor cosmesis, fascial dehiscence, blood transfusion, persistent bladder or prostate urinary extravasation requiring prolonged catheter usage and/or placement of bilateral PCN's or an IR drain, injury to either ureteral orifice requiring a ureteral stent or ureteral reimplantation or bilateral PCN's, injury to bowel requiring resection and reanastomosis with the assistance of General Surgery or a colostomy or ileostomy creation with the hopes of being able to reverse this in the future, injury to blood vessels leading to life-threatening bleeding, inherent risks of anesthesia. Surgeon: Sanchez Polanco Assisted?: No Anesthesia Type: General Operative Notes Findings: Very large prostate, very large intravesical median lobe Closure Type: primary Specimen(s): other (prostate) Applied: catheter Estimated Blood Loss (mL): 200 Blood products transfused: none Procedure in detail: After administration of general anesthetic, this patient was placed in an extended dorsal lithotomy position. The lower abdomen and genitalia were shaved, prepped, and draped in a sterile fashion. A 16 fr Phillip catheter was then passed per urethra in to the bladder and secured in the proper location by inflating the Phillip balloon. A small curvilinear incision was made immediately superior to the umbilicus, we then grasped the skin edges to elevate the abdominal wall and we established a pneumoperitoneum with a Veress needle. An 8 mm trocar was then placed. The abdomen was then inspected and free of injury from the trochar placement. Under direct vision, we placed 2 additional trocars on both sides; the far-left lateral port being a 12 mm port for the assistant manager pt, and the remainder being 8 mm da Vani ports. The ports were then connected to the Rollerscoot surgical system. A Willie-Hans device was utilized for fascial closure of the aforementioned 12 mm assistant manager pt port. A total of 60 cc's of local anesthetic was utilized throughout the case. The bladder was then identified by distending the bladder via the phillip with 240 cc of sterile water. A vertical midline incision was made in the bladder. Stay sutures were then utilized to keep the bladder open via 0-Vicryl sutures and large weck clips. Bilateral ureteral orifices were easily identified and noted to be orthotopic in nature. The adenoma was easily visualized as a large intravesical median lobe. ?The bladder mucosa was then scored circumferentially around the adenoma and adenoma was excised intact. Hemostasis was obtained within the prostatic fossa via 4-0 Vicryl sutures in a figure of 8 fashion. Hemostasis was evaluated and noted to be excellent. A 24Fr Janett 3-way hematuria catheter was then placed into the bladder and the balloon was inflated under direct vision, a total of 45 cc of sterile water was utilized for balloon insufflation. The cystotomy was then closed in two layers using 3-0 V-lock in a running fashion and tied in the middle. A leak test was then performed with 240 cc of sterile water and noted to be negative. The prostatic adenoma was then placed into the lap sac. The robot was undocked and the midline incision was then extended to allow for extraction of the specimen. The midline fascial incision was then closed transversely using figure-of- eight sutures of 0 Vicryl. All skin incisions were then closed using running 4-0 Monocryl. All five incisions were then covered with Dermabond. The patient was then awakened and taken to the PACU in stable condition for recovery. Complications: none Post-operative Condition: stable Disposition: Acute Care Plan for aftercare: Transfer to acute care for continued bladder irrigation. Will continue to downtitrate his CBI over the next few days.
[2025-07-26] MEDS: LACTATED RINGERS 1,000 ML 125 ML IV (22:20)
[2025-07-27] MEDS: ACETAMINOPHEN 325 MG TABLET 975 MG PO ×3 (03:52→23:01)
[2025-07-27 04:35] LABS: Add Manual Diff / Slide Review NO; Hematocrit 42.5 % (41-53); Hemoglobin 14.1 g/dL (13.5-17.5); Lymphocytes Absolute Auto 1300 /uL (1100-4500); Mean Corpuscular HGB Conc 33.2 % (30-36); Mean Corpuscular Hemoglobin 30.7 PG (26-34); Mean Corpuscular Volume 92.5 fL (80-100); Platelet Count 302 X10^3/uL (150-400)
[2025-07-27 04:48] LABS: Blood Urea Nitrogen 11 mg/dL (9-20); Calcium 8.6 mg/dL (8.4-10.2); Carbon Dioxide 28 mmol/L (22-32); Chloride 100 mmol/L (98-107); Estimated Glomerular Filt Rate > 60 mL/min (>60); Glucose 126 mg/dL (70-99); HEMOLYSIS < 15 (0-50); Potassium 4.6 mmol/L (3.4-5.1); Sodium 133 mmol/L (137-145)
[2025-07-27] MEDS: LACTATED RINGERS 1,000 ML 125 ML IV ×2 (05:42→13:43)
--- NOTE | 2025-07-27 07:50 | P.PN_ITS ---
Subjective Subjective Date Patient Seen: 07/27/25 Time Patient Seen: 07:51 Interval history: 75 y/o M w/ BPH and bothersome LUTS who strongly desired surgical management via a robotic simple prostatectomy.? He is now POD 1 and tolerated the aforementioned procedure without any complications and had an uneventful night in the hospital.? He was tolerating a clear liquid diet without nausea or vomiting and his pain remained well controlled.?His catheter efflux is light pink while on a fast rate of CBI. Exam Vital Signs (past 8 hours): Oxygen Delivery Method Room Air Narrative Exam Narrative: GEN:? Alert and oriented X3.? No acute distress.? Well-nourished. EYES:? PERRLA, EOMI. HENT:? Moist mucus membranes, no scleral icterus, normal neck ROM. RESP:? Unlabored breathing, equal rise and fall of chest bilaterally, no cyanosis appreciated. CV:? No peripheral edema, unremarkable heart rate. ABD:? Soft, non-tender, non-distended, no palpable masses. :? Guo catheter secured and draining light pink urine without clots with CBI on fast rate. EXT:? No edema, clubbing or cyanosis. SKIN:? No rashes or lesions. NEURO:? No focal neurologic deficits, CN II-XII grossly intact. PSYCH:? Cooperative, appropriate mood and affect. Objective Labs 07/27/25 04:05 07/27/25 04:05 Labs: Laboratory Results - last 24 hr 07/27/25 04:05 WBC 22.9 H RBC 4.59 Hgb 14.1 Hct 42.5 MCV 92.5 MCH 30.7 MCHC 33.2 RDW 13.4 Plt Count 302 Neut % (Auto) 87.9 H Lymph % (Auto) 5.5 L Edwards % (Auto) 6.3 Eos % (Auto) 0.0 L Baso % (Auto) 0.3 Neut # (Auto) 68942 H Lymph # (Auto) 1300 Edwards # (Auto) 1400 H Eos # (Auto) 0 Baso # (Auto) 100 Sodium 133 L Potassium 4.6 Chloride 100 Carbon Dioxide 28 BUN 11 Creatinine 0.68 Estimated GFR > 60 BUN/Creatinine Ratio 16.2 Glucose 126 H Calcium 8.6 PFSH Medical History Guo catheter in place Nephrolithiasis Constipation Weight gain Kidney stone on right side H/O adenomatous polyp of colon GERD without esophagitis Elevated PSA Seborrheic keratosis Benign prostatic hyperplasia with urinary obstruction (05/21/16) Peripheral neuropathy (08/10/14) Mass of left breast (08/10/14) Surgical History Hx of left inguinal hernia repair (02/02/25) Hx of cystoscopy (10/26/24) History of hernia repair (~1968) Family History Brother Prostate cancer Father Brain tumor Social History marital status: unmarried,single household members: spouse pets and animals: Yes occupational status: previously employed Smoking Status: Never smoker alcohol intake: never substance use type: does not use Assessment & Plan Post-op Postoperative Procedures: Procedures Operation Date: 07/26/25 12:15 Actual Procedure Side Surgeon p Robotic Simple Prostatectomy Sanchez Polanco DO Postoperative day: 1 Postoperative status: doing well Postoperative plan: routine post-op care Postoperative plan narrative: 75 y/o M w/ h/o BPH and bothersome LUTS who strongly desired surgical management via a robotic simple prostatectomy. He is POD 1 and is recovering as expected. His CBI rate was decreased to a slow continuous rate this AM and his traction was removed as well. - Will continue to hydrate well - Will switch to a regular diet - Will ambulate 3-4 times laps with the help of the nursing team - Will check on him around lunch and in the evening - Should his efflux become more dark, please contact Sherri directly Time Spent With Patient Time with patient: less than 15 minutes
[2025-07-27 09:07] VITALS: BP 134/76; PULSE 66; RESP 17; TEMP 37.1; O2SAT 95
--- NOTE | 2025-07-27 12:26 | CM.DANOTE ---
Initial DCP Assessment Visit Note Reviewed EMR and team rounds for pt's medical status and updates. Met with pt/spouse at bedside to introduce self and role. Pt was found to be alert/oriented, able to share his complicated recent medical history, and that he was glad that it was all behind him now. Pt resides independently in his own home w/spouse here in [place]. His spouse will transport him home once he's medically stable for d/c, likely in 1-more day. He declines any CM needs/resources at this time. Payor: [place] Attending: Dr. Polanco Pt is a 75 year-old M with a recent hx of having a kidney stone, then needed a nephrostomy, then had a complication of bacteremia when he had the nephrostomy tube was removed. After that, he was cleared for having a planned robotic prostectomy due to a very enlarged prostate and worsening difficulty with urinating. He is post-op day 1 and doing well at this time. Plan is to continue to monitor overnight for irrigation, and d/c tomorrow to home. Discharge Planning/Care Management CM Discharge Assessment Start: 07/26/25 10:39 Freq: Status: Active Protocol: Document 07/27/25 12:19 DPL (Rec: 07/27/25 12:21 DPL [id number]) Discharge Planning Assessment Assigned Discharge ALEXANDREA Panda Bag Patcher Insurance [facility] Advance Directives? Yes Advance Directives No on File History Provided By Patient,Medical Record Has Patient been No admitted in last 30 days? Prior Living House Arrangements Household Members spouse Type of Drives own vehicle transporation used prior to admit Independent with ADL Yes 's Is patient alert and Yes oriented? Caregiver for No Another Comment N/A Comment No identified home d/c needs at this time. Barriers to No Discharge Discharge Plan Home Referrals Initiated None needed Whiteboard Updated Yes in Patient Room with name and ext. # of Medical Review Coordinator Review Status In Process Please Provide Date 07/27/25 Initial DC Assessment Was Performed Pre-Anesthesia Assessment. Start: 07/19/25 13:32 Freq: Status: Active Protocol: Document 07/19/25 13:32 CAB (Rec: 07/19/25 13:44 CAB [id number]) Pre-Anesthesia Assessment PAC Comment Chart review 07/19/25 Patient Information Chart Review Reviewed Via [facility] [place] Provider Seen Specialist in Yes Last 12 Months Specialist Seen Emergency,General surgeon,Urologist Primary Language Ghanaian Preferred Language Ghanaian Boat Garnisher Required No Height 177.8 cm Weight 64.41 kg Body Mass Index (BMI 20.3 ) Hx Anesthesia No Reactions Hx Family Anesthesia No Reaction Hx Malignant No Hyperthermia Hx Blood No Transfusions Hx Blood Transfusion No Reaction Anesthesia Review No Requested Naval Engineer No alcohol intake never Alcohol intake 0 drinks per day frequency Substance Use Type [ does not use #R] Patient is No completely paralyzed or completely immobile Mental Status Oriented to own ability Is patient on oxygen No ? Hx Sleep Apnea No CPAP/BIPAP use not prescribed Currently Taking a No Beta Jef Anti-Coagulant No Therapy Cardiac Testing No Hx Pacemaker/ICD No Pacemaker Rep No Required? Cardiac Clearance No Received Urinary Catheter Yes Present Hx Urinary Self No Catheterization Diabetes No Presence of external Yes: Right nephrostomy tube (capped). plate in left or internal medical wrist, phillip catheter devices? Month and year fall 2019 received flu vaccine Received a COVID Yes vaccine? Marital Status Lives With spouse Patient Discharge Return Home Plan Description Do You Have Any No Spiritual Beliefs That May Affect Your HC Choices? Do You Have Any Yes Cultural Practices That May Affect Your HC Choices? Emergency Contact Migdalia Germain - Name Emergency Contact [phone] Phone Number Advance Directives? Yes Advance Directives No on File
[2025-07-27 15:36] VITALS: BP 112/62; PULSE 64; RESP 14; TEMP 36.7; O2SAT 95
[2025-07-27] MEDS: SODIUM CHLORIDE 0.9% FLUSH 10 ML IV (19:58)
[2025-07-27 20:05] VITALS: BP 107/65; PULSE 60; RESP 16; TEMP 37; O2SAT 94
--- NOTE | 2025-07-27 22:54 | PC.NURSE ---
Patient is alert and oriented. Breath sounds CTA with RA sat of 94%. HRR. Denied nausea. BT hypoactive and states he has not passed any flatus as yet. Continuing with continuous bladder irrigation and urine is grade 2. Is able to move himself in bed. Declined ambulating in herbert this shift but reportedly was up walking in halls today with and tolerated well. Refusing SCD's despite education regarding DVT prevention. Denied pain. Fall risk score is low. rooming in. Plans to discharge early afternoon tomorrow.
[2025-07-28 04:13] LABS: Add Manual Diff / Slide Review NO; Hematocrit 39.2 % (41-53); Hemoglobin 13.3 g/dL (13.5-17.5); Lymphocytes Absolute Auto 1800 /uL (1100-4500); Mean Corpuscular HGB Conc 34.0 % (30-36); Mean Corpuscular Hemoglobin 31.3 PG (26-34); Mean Corpuscular Volume 91.9 fL (80-100); Platelet Count 273 X10^3/uL (150-400)
[2025-07-28 04:24] LABS: Blood Urea Nitrogen 7 mg/dL (9-20); Calcium 8.6 mg/dL (8.4-10.2); Carbon Dioxide 29 mmol/L (22-32); Chloride 102 mmol/L (98-107); Estimated Glomerular Filt Rate > 60 mL/min (>60); Glucose 102 mg/dL (70-99); HEMOLYSIS < 15 (0-50); Potassium 3.9 mmol/L (3.4-5.1); Sodium 134 mmol/L (137-145)
--- NOTE | 2025-07-28 07:43 | PM.PNPO.1 ---
Subjective Subjective Date Patient Seen: 07/28/25 Time Patient Seen: 07:44 Interval history: 75 y/o M w/ BPH and bothersome LUTS who strongly desired surgical management via a robotic simple prostatectomy.? He is now POD 2 and tolerated the aforementioned procedure without any complications and had an uneventful night in the hospital.? He was tolerating a regular diet without nausea or vomiting and his pain remained well controlled.?His catheter efflux is light pink while on a slow drip of CBI. Exam Vital Signs (past 8 hours): Oxygen Delivery Method Room Air Oxygen Flow Rate 0 Narrative Exam Narrative: GEN:? Alert and oriented X3.? No acute distress.? Well-nourished. EYES:? PERRLA, EOMI. HENT:? Moist mucus membranes, no scleral icterus, normal neck ROM. RESP:? Unlabored breathing, equal rise and fall of chest bilaterally, no cyanosis appreciated. CV:? No peripheral edema, unremarkable heart rate. ABD:? Soft, non-tender, non-distended, no palpable masses. :? Guo catheter secured and draining light pink urine without clots with CBI on slow drip. EXT:? No edema, clubbing or cyanosis. SKIN:? No rashes or lesions. NEURO:? No focal neurologic deficits, CN II-XII grossly intact. PSYCH:? Cooperative, appropriate mood and affect. Objective Labs 07/28/25 03:43 07/28/25 03:43 Labs: Laboratory Results - last 24 hr 07/28/25 03:43 WBC 10.2 D RBC 4.26 L Hgb 13.3 L Hct 39.2 L MCV 91.9 MCH 31.3 MCHC 34.0 RDW 13.2 Plt Count 273 Neut % (Auto) 72.3 Lymph % (Auto) 17.4 L Churchill % (Auto) 8.7 Eos % (Auto) 1.0 L Baso % (Auto) 0.6 Neut # (Auto) 7400 H Lymph # (Auto) 1800 Churchill # (Auto) 900 Eos # (Auto) 100 Baso # (Auto) 100 Sodium 134 L Potassium 3.9 Chloride 102 Carbon Dioxide 29 BUN 7 L Creatinine 0.66 Estimated GFR > 60 BUN/Creatinine Ratio 10.6 Glucose 102 H Calcium 8.6 PFSH Medical History Guo catheter in place Nephrolithiasis Constipation Weight gain Kidney stone on right side H/O adenomatous polyp of colon GERD without esophagitis Elevated PSA Seborrheic keratosis Benign prostatic hyperplasia with urinary obstruction (05/21/16) Peripheral neuropathy (08/10/14) Mass of left breast (08/10/14) Surgical History Hx of left inguinal hernia repair (02/02/25) Hx of cystoscopy (10/26/24) History of hernia repair (~1968) Family History Brother Prostate cancer Father Brain tumor Social History marital status: unmarried,single household members: spouse pets and animals: Yes occupational status: previously employed Smoking Status: Never smoker alcohol intake: never substance use type: does not use Assessment & Plan Post-op Postoperative Procedures: Procedures Operation Date: 07/26/25 12:15 Actual Procedure Side Surgeon p Robotic Simple Prostatectomy Sanchez Polanco DO Postoperative day: 2 Postoperative status: doing well Postoperative plan: routine post-op care Postoperative plan narrative: 75 y/o M w/ h/o BPH and bothersome LUTS who strongly desired surgical management via a robotic simple prostatectomy. He is POD 2 and is recovering as expected. His CBI was discontinued this morning and a catheter plug was placed in the CBI port. - Will continue to hydrate well - Will continue with a regular diet - Will ambulate 3-4 times laps with the help of the nursing team - Will check on him around lunch - Should his efflux become more dark, please contact Sherri directly - If efflux remains relatively light red without significant clots, may discharge home at lunch Time Spent With Patient Time with patient: less than 15 minutes
[2025-07-28 08:24] VITALS: BP 150/96; PULSE 68; RESP 16; TEMP 36.7; O2SAT 96
--- NOTE | 2025-07-28 12:42 | PM.DS.IH.1 ---
History of Present Illness History of Present Illness Chief complaint: Discuss urinary habits, phillip catheter management Narrative: 75 y/o M returns to Urology clinic to discuss his urinary habits and phillip catheter management. Briefly, he presented to ER on 07 Oct 2024 for evaluation of roughly 30 days of intermittent right flank pain w/ nausea and vomiting. He also found it more and more difficult to urinate despite taking Tamsulosin 0.8mg daily. A CT Abd/Pel was obtained that noted an 8mm right mid ureterolith w/ resultant upstream moderate to severe hydroureteronephrosis and concern for fornyceal rupture as well as a very distended bladder. A phillip catheter was placed w/ immediate drainage of 2L of urine. An attempt at a cystoscopy w/ right retrograde ureteral stent placement was ultimately unsuccessful, therefore, he was transferred to for attempt at a right PCNU placement. Unfortunately, IR did not attempt placement of a PCNU and simply placed a right PCN tube. He is now s/p a cystoscopy w/ unsuccessful attempt at right ureteroscopy w/ laser lithotripsy on 01 Nov 2024. I was unable to access his right ureteral orifice secondary to his large intravesical median lobe, gross hematuria and bullous edema w/in his bladder consistent w/ phillip catheter changes. He was referred to stone center and his stone and right PCN tube have now both been removed. Regarding his urinary habits, he is currently taking Tamsulosin 0.8mg daily and has been unable to volitionally void for the last 8 months. He has been returning to Urology clinic on a monthly basis to exchange his phillip catheter and returns today for his preoperative evaluation prior to a robotic simple prostatectomy. Of note, he does not have a prior Cardiac history and does not regularly consume blood thinners or NSAID's. He did have a prior laparoscopic left inguinal hernia repair with mesh in January of 2025. Discharge Providers Provider Discharge Date: 07/28/25 Primary care physician: Landry Bay MD Discharge provider: Sanchez Polanco, Exam Vital Signs (past 8 hours): - 07/28/25 08:24 Temperature 98.1 F Pulse Rate 68 Respiratory Rate 16 Blood Pressure 150/96 H Pulse Oximetry 96 Oxygen Flow Rate 0 Oxygen Delivery Method Room Air Oxygen Flow Rate 0 Narrative Exam Narrative: GEN:? Alert and oriented X3.? No acute distress.? Well-nourished. EYES:? PERRLA, EOMI. HENT:? Moist mucus membranes, no scleral icterus, normal neck ROM. RESP:? Unlabored breathing, equal rise and fall of chest bilaterally, no cyanosis appreciated. CV:? No peripheral edema, unremarkable heart rate. ABD:? Soft, non-tender, non-distended, no palpable masses. :? Phillip catheter secured and draining light pink urine without clots with CBI on slow drip. EXT:? No edema, clubbing or cyanosis. SKIN:? No rashes or lesions. NEURO:? No focal neurologic deficits, CN II-XII grossly intact. PSYCH:? Cooperative, appropriate mood and affect. Objective Labs 07/28/25 03:43 07/28/25 03:43 Labs: Laboratory Results - last 24 hr 07/28/25 03:43 WBC 10.2 D RBC 4.26 L Hgb 13.3 L Hct 39.2 L MCV 91.9 MCH 31.3 MCHC 34.0 RDW 13.2 Plt Count 273 Neut % (Auto) 72.3 Lymph % (Auto) 17.4 L Aiken % (Auto) 8.7 Eos % (Auto) 1.0 L Baso % (Auto) 0.6 Neut # (Auto) 7400 H Lymph # (Auto) 1800 Aiken # (Auto) 900 Eos # (Auto) 100 Baso # (Auto) 100 Sodium 134 L Potassium 3.9 Chloride 102 Carbon Dioxide 29 BUN 7 L Creatinine 0.66 Estimated GFR > 60 BUN/Creatinine Ratio 10.6 Glucose 102 H Calcium 8.6 PFSH Medical History Phillip catheter in place Nephrolithiasis Constipation Weight gain Kidney stone on right side H/O adenomatous polyp of colon GERD without esophagitis Elevated PSA Seborrheic keratosis Benign prostatic hyperplasia with urinary obstruction (05/21/16) Peripheral neuropathy (08/10/14) Mass of left breast (08/10/14) Surgical History Hx of left inguinal hernia repair (02/02/25) Hx of cystoscopy (10/26/24) History of hernia repair (~1967) Family History Brother Prostate cancer Father Brain tumor Social History marital status: unmarried,single household members: spouse pets and animals: Yes occupational status: previously employed Smoking Status: Never smoker alcohol intake: never substance use type: does not use Discharge Assessment & Plan Assessment and Plan Plan of Treatment: 75 y/o M w/ h/o BPH and bothersome LUTS who strongly desired surgical management via a robotic simple prostatectomy. He is POD 2 and is recovering as expected. His CBI was discontinued this morning and a catheter plug was placed in the CBI port. - Will continue to hydrate well - Will continue with a regular diet - Will ambulate 3-4 times laps with the help of the nursing team - Will check on him around lunch - Should his efflux become more dark, please contact Sherri directly - If efflux remains relatively light red without significant clots, may discharge home at lunch Discharge Plan Discharge Plan Patient Disposition: Home Provider Discharge Comment: You may resume a regular diet upon returning home. You may begin taking showers as soon as you get home. Please allow the soapy water to run over your incisions. Then pat your incisions dry when you get out of the shower. Please refrain from submerging your incisions in standing water for the next 3 weeks (pools, hot tubs, baths, oceans, leaks, etc..). The surgical grade superglue over your incision should slowly flake off on its own over the next 2-3 weeks. Please do not peel it off early, it would be very similar to removing a scab prior to it being ready to come off. You can expect to have burning with urination for the next few days, this is normal and to be expected after your procedure. You may purchase an OTC medication (Phenazopyridine or Azo), a medication that can help with this burning and discomfort. This medication may change the color of your urine orange, however, this will resolve once you stop taking the medication. It is normal to have blood in your urine after the procedure. You may even pass large blood clots for the next several weeks. Expect to have periods of passage of blood clots and red urine which will then resolve after a few days and return to clear yellow urine. This is normal and part of the healing process of your bladder. As long as you are able to completely empty your bladder, it is okay. If you feel that you have to urinate and you are unable to empty your bladder, please go to the closest emergency room or contact our clinic for evaluation. It is important to refrain from heavy lifting (> 20 lbs) for the next six weeks. Please also avoid strenuous activities (running, elliptical machines, hiking, going to the gym). Please ensure that you have soft daily bowel movements for the next few weeks, you may purchase OTC Miralax and titrate the dosage as needed to achieve soft daily bowel movements. If you are discharged home with a phillip catheter, it is normal for the urine to switch between clear and red and even drain some blood clots. Some of the urine may also drain around the catheter, however, as long as the majority of the urine is draining through the catheter that is okay and to be expected. Should the catheter stop draining for an hour or more, please present to [facility] ER for evaluation after hours, or the Urology clinic during daylight hours. You have an appointment to return to the Urology clinic at [facility] on 10 Aug [address] results and hopefully have your catheter removed. You will be contacted by the Radiology department to coordinate the time for your CT to be performed earlier that morning. Should you have any questions or concerns after hours, please call the [employer] [facility]per for [facility] at [phone]. They can relay any questions or concerns you have to the physician on-call. Discharge orders & Medications Discharge Orders: Discharge (Order); Ordered 07/28/25 Ordered By: Sanchez Polanco Prescriptions: New oxycodone 5 mg tablet 5 mg PO Q8H PRN (Reason: pain (scale score 7-10)) Qty: 7 0RF Continued [VITAMIN C] 1 tab PO Q DAY Qty: 0 [VITAMIN E] 1 tab PO QDAY Qty: 0 tamsulosin 0.4 mg capsule 0.4 mg PO BID Qty: 180 3RF nitrofurantoin monohyd/m-cryst 100 mg capsule 1 cap PO BID magnesium gluconate 30 mg (550 mg) tablet 30 mg PO DAILY acetaminophen [Tylenol Extra Strength] 500 mg tablet 1,000 mg PO QID Follow up/Referrals: Sanchez Polanco DO [Physician, Urology] Landry Bay MD [Primary Care Provider, Family Practice] Diet/Activity/Treatments Diet: Diet as Tolerated Catheter: 3-way Phillip Skin/Wound/Dressing Care Report to your healthcare provider any signs of infection, such as:: chills, fever, night sweats, increased pain and unusual drainage Visit Report/Discharge Packet Stand Alone Forms: Patient Portal/API Print Language: Peruvian Discharge Data Primary Care Provider: Landry Bay Attending Provider: Sanchez Polanco PROFEE Charge Codes Discharge inpatient/observation: [id number]
--- NOTE | 2025-07-28 12:51 | CM.DPC ---
DCP Cont. Reviewed EMR and team rounds for pt's medical status and updates. Pt has been medically cleared for home d/c. His spouse will plan to transport him home. No further CM d/c needs identified at this time.
--- NOTE | 2025-07-28 14:04 | PC.NURSE ---
Discharge instructions given and understood. PIV removed. Pt discharged with pt's via private vehicle. Escorted to the entrance via wheelchair.
== END 2025-07-28 13:45 | disposition home or self-care (01) ==
LOC: OR 10:17 → AC 10:19
PROVIDERS: PCP Family Medicine; Referring Provider Urology; Visit Provider Urology
PROC: 0VT04ZZ Resection of Prostate, Percutaneous Endoscopic Approach (ICD-10-PCS; CPT 55867; principal; 2025-07-26 12:15)
DX: N40.1 Benign prostatic hyperplasia with lower urinary tract symptoms (principal); R33.8 Other retention of urine; N41.1 Chronic prostatitis; N41.0 Acute prostatitis
CPT/HCPCS: 55867; 36415; 72170; 80048; 85025; J0689; J1100; J1171; J2405; J2704; J3010; J7050; J7120

== ENCOUNTER → 2025-08-02 12:07 | Outpatient (CLI) | payer MEDICARE, SELFPAY ==
[2025-07-26 20:00] VITALS: BMI 20.3
[2025-08-02 12:59] LABS: Estimated Glomerular Filt Rate > 60 mL/min (>60)
== END ==
LOC: CT 12:08
PROVIDERS: PCP Family Medicine; Referring Provider Family Medicine; Visit Provider Urology
DX: N20.1 Calculus of ureter (principal)
CPT/HCPCS: 36415; 82565

== ENCOUNTER → 2025-08-09 09:31 | Outpatient (CLI) | payer MEDICARE, SELFPAY ==
[2025-07-26 20:00] VITALS: BMI 20.3
--- NOTE | 2025-08-09 09:32 | DI.CT.S_ITS ---
PROCEDURE: CT CYSTOGRAM INDICATIONS: 75 y/o M s/p simple prostatectomy, eval for bladder leak TECHNIQUE: Both before and after gravity instillation of 10% Isovue contrast solution into the bladder through a Guo catheter, 5 mm axial images acquired from the bladder dome to the symphysis. 5 mm thick coronal and sagittal reformats were acquired. For radiation dose reduction, the following was used: automated exposure control, adjustment of mA and/or kV according to patient size. COMPARISON: [facility], CT, CT ABDOMEN PELVIS W CON, 03/02/2025, 16:47. FINDINGS: Image quality: Diagnostic. Bladder: The urinary bladder begins partially decompressed with a Guo catheter. There is a small amount of air superior and anterior in the bladder. The wall is circumferentially thickened. There are no initial hyperdensities within the urinary bladder. Post retrograde filling of the bladder 200 cc of contrast, there is evidence of contrast leak along the left posterior, inferior margin of the bladder near the prostatic urethra. This is best demonstrated on sagittal series 8, image 60 and coronal series 4, image 37. Contrast extends posterior into the pelvis and some tracts into the right seminal vesicles. There are no pre-existing, drainable fluid collections in the prostate bed to suggest urinoma or abscess. Incidental note of small right posterolateral diverticulum. Distal Ureters: The distal ureters are nondistended. There is an 8 mm obstructing stone in the right mid ureter with density of about 770 Hounsfield units, and causing moderate right hydronephrosis. No visible vesicoureteral reflux. PELVIS: Peritoneum and Bowel: Mild generalized inflammatory changes and fat stranding in the anterior peritoneum and mesentery. No visible free air or free fluid. Inferior small bowel loops are normal. Diverticulosis of the sigmoid colon noted. Pelvic Organs: Prostate gland is surgically absent. Pelvic Nodes: No enlarged lymph nodes. Miscellaneous: No inguinal hernias are seen. Incidental note of partially imaged granular cholelithiasis. Bones: No aggressive osseous abnormality. Degenerative changes particularly severe the L5-S1 disc level. IMPRESSION: Small bladder perforation along the left inferior aspect, probably partially controlled by Guo catheter balloon. Evidence of drainable extraluminal fluid in the pelvis. Incidental obstructing 8 mm right mid ureteral calcification. Report alert called to the office of the ordering provider beginning at 13:12 hours. Dictated by: Christelle Steen M.D. on 08/09/2025 at 12:51 Approved by: Christelle Steen M.D. on 08/09/2025 at 13:13
== END ==
LOC: CT 09:31
PROVIDERS: PCP Family Medicine; Referring Provider Urology; Visit Provider Urology
DX: N40.1 Benign prostatic hyperplasia with lower urinary tract symptoms (principal); R33.9 Retention of urine, unspecified; N32.3 Diverticulum of bladder; N13.2 Hydronephrosis with renal and ureteral calculous obstruction; K57.20 Diverticulitis of large intestine with perforation and abscess without bleeding; M47.817 Spondylosis without myelopathy or radiculopathy, lumbosacral region
CPT/HCPCS: 72194; Q9967

== ENCOUNTER → 2025-08-24 11:13 | Outpatient (CLI) | payer MEDICARE, SELFPAY ==
[2025-07-26 20:00] VITALS: BMI 20.3
--- NOTE | 2025-08-24 11:15 | DI.CT.S_ITS ---
PROCEDURE: CT CYSTOGRAM INDICATIONS: 75 y/o M s/p simple prostatectomy, eval for leak TECHNIQUE: Both before and after gravity instillation of 10% Isovue contrast solution into the bladder through a Guo catheter, 5 mm axial images acquired from the bladder dome to the symphysis. 5 mm thick coronal and sagittal reformats were acquired. For radiation dose reduction, the following was used: automated exposure control, adjustment of mA and/or kV according to patient size. COMPARISON: [facility], CT, CT ABDOMEN PELVIS W CON, 10/07/2024, 9:11. [facility], CT, CT KIDNEY URETER BLADDER (KUB), 10/17/2024, 8:04. [facility], CT, CT CYSTOGRAM, 08/09/2025, 9:56. FINDINGS: Image quality: Diagnostic. Bladder: Normal wall thickness. Minimal perivascular fat stranding. Cystogram was performed through Guo catheter in normal position and documents a diminished size of a inferior posterior predominantly left paramedian extravasation of contrast, significantly improved from the recent comparison cystogram CT study 08/09/25. Maximal extravasation AP dimension is 1.5 cm and transverse dimension is 1.8 cm with minimal craniocaudad extent. Distal Ureters: No abnormal distension on the left. Note is again made of a relatively large mid to distal ureteral stone on the right associated with moderate right hydronephrosis and what appears to be a small degree of renal cortical atrophy with reference to earlier renal CT studies. This calculus appears to have been slowly enlarging and present at least since September 2024. Its position has changed depending on intervention and time. It currently measures 8 mm maximal axial dimension and 1.5 cm craniocaudad. Note: Multiple posterior layering mildly calcified small gallstones are present within the gallbladder lumen, without gallbladder inflammation or biliary distension associated. PELVIS: Peritoneum and Bowel: Bowel loops demonstrate normal wall thickness and caliber. No free fluid or air. Pelvic Organs: No pelvic mass. Pelvic Nodes: No enlarged lymph nodes. Miscellaneous: No inguinal hernias are seen. Bones: No aggressive osseous abnormality. IMPRESSION: 1. The postprocedural extravasation of contrast previously identified during CT cystography 08/09/25 has significantly diminished, is located at the bladder inferior margin, and does not extend beyond the bladder border by more than 1.8 cm. The bladder wall remains mildly trabeculated and demonstrates a small right bladder diverticulum previously present. 2. A chronically present mid to distal right ureteral partially obstructive calculus measures 8 mm in maximal axial dimension but 1.5 cm craniocaudad and is associated with mild renal cortical atrophy and chronic hydronephrosis on the right. This has been present in variable positions since at least September 2024. 3. Multiple small posterior layering gallstones are present within the gallbladder lumen but without evidence of acute cholecystitis or biliary obstruction. Dictated by: Gulshan Silva M.D. on 08/25/2025 at 10:00 Approved by: Gulshan Silva M.D. on 08/25/2025 at 10:39
== END ==
LOC: CT 11:14
PROVIDERS: PCP Family Medicine; Referring Provider Urology; Visit Provider Urology
DX: S37.23XA Laceration of bladder, initial encounter (principal)
CPT/HCPCS: 72194; Q9967

== ENCOUNTER → 2025-09-07 10:31 | Outpatient (CLI) | payer MEDICARE, SELFPAY ==
[2025-07-26 20:00] VITALS: BMI 20.3
== END ==
PROVIDERS: PCP Family Medicine; Visit Provider Urology
DX: N40.1 Benign prostatic hyperplasia with lower urinary tract symptoms (principal)
CPT/HCPCS: 87086

== ENCOUNTER 2025-09-16 06:25 | Day surgery (SDC) | payer MEDICARE, SELFPAY ==
[2025-07-26 20:00] VITALS: BMI 20.3
[2025-09-12 08:01] VITALS: BMI 20.7
[2025-09-16] VITALS (8 sets, daily range): BP systolic 129–160; BP diastolic 75–88; PULSE 45–61; RESP 8–20; TEMP 36.1–36.6; O2SAT 95–99
--- NOTE | 2025-09-16 | DI.RAD.S_ITS ---
PROCEDURE: XR ABDOMEN 1V INDICATIONS: RT STENT PLACEMENT TECHNIQUE: 3 intra-operative images acquired by the Urology service. COMPARISON: [facility], CR, XR ABDOMEN 1V, 11/01/2024, 15:04. FINDINGS: Images demonstrate the performance of a retrograde urogram. Final image demonstrates a right-sided ureteral stent in position. Right ureter and renal pelvis appear dilated. IMPRESSION: Intraoperative fluoroscopy for right double-J ureteral stent placement. Dictated by: Charleen Hinojosa M.D. on 09/20/2025 at 11:47 Approved by: Charlene Hinojosa M.D. on 09/20/2025 at 11:48
[2025-09-16] MEDS: LACTATED RINGERS 1,000 ML 21 ML IV (06:55)
--- NOTE | 2025-09-16 07:37 | PM.PREOP ---
Pre-operative Note COVID-19 COVID-19 status: Not tested Interval Note History & Physical reviewed/Exam performed by Physician: Yes Changes to H&P: Yes H&P completed within 30 days and has changed as indicated here:: In the interim, he has decided to move forward with a cystoscopy, right ureteroscopy, laser lithotripsy and right ureteral stent placement in lieu of medical expulsion therapy. Discussed risks of the procedure to include but not limited to pain, bleeding, infection, injury to urethra/bladder/ureter, inability to access the ureter requiring discussion with Interventional Radiology regarding a possible ureteral stent placement in an antegrade fashion vs a possible nephroureteral stent and/or percutaneous nephrostomy tube, urinary tract infection, inability to remove all of the stone in one setting, need for emergent open repair of bladder and/or ureter, need for multiple ureteroscopic interventions necessary to render the patient stone free.
--- NOTE | 2025-09-16 08:21 | SUR.OPER ---
Lithotomy on padded OR bed, head on pillow, right arm secured on padded arm boards at <90 degrees abduction. Legs secured in padded yellow fins stirrups. righ arm tucked with
--- NOTE | 2025-09-16 08:22 | SUR.OPER ---
Lithotomy on padded OR bed, head on pillow, left arm secured on padded arm boards at <90 degrees abduction. Legs secured in padded yellow fins stirrups. right arm tucked with gel pad
--- NOTE | 2025-09-16 09:02 | SUR.OPER ---
LASER NOTE JONES 12, ENERGY 3.64, TIME 4.50, JOULES 0.3, FREQUENCY 40
--- NOTE | 2025-09-16 09:23 | PM.OP.1 ---
Operative Date/Time/Diagnoses Date of procedure: 09/16/25 Time of procedure: 08:10 Pre-op diagnosis: Right mid ureterolith Post-op diagnosis: same Procedure & Clinicians Procedure: Cystoscopy Right ureteroscopy, laser lithotripsy Right retrograde ureteropyelogram Right ureteral stent placement Intraoperative interpretation of fluoroscopic images, total time < 1 hour Same procedure(s) as scheduled: Yes Indications: 75 y/o M oted to have an 8mm right mid ureterolith with resultant upstream moderate hydroureteronephrosis. Discussed treatment options to include continued medical expulsion therapy (recommended given small size) vs cystoscopy, ureteroscopy, laser lithotripsy with ureteral stent placement. Discussed risks of the procedure to include but not limited to pain, bleeding, infection, injury to urethra/bladder/ureter, inability to access the ureter requiring discussion with Interventional Radiology regarding a possible ureteral stent placement in an antegrade fashion vs a possible nephroureteral stent and/or percutaneous nephrostomy tube, urinary tract infection, inability to remove all of the stone in one setting, need for emergent open repair of bladder and/or ureter, need for multiple ureteroscopic interventions necessary to render the patient stone free. Surgeon: Sanchez Polanco Assisted?: No Anesthesia Type: General Operative Notes Findings: Very impacted right mid ureterolith, large J-hook at site of stone impaction Closure Type: not applicable Specimen(s): none sent Applied: none Estimated Blood Loss (mL): 5 Blood products transfused: none Procedure in detail: Patient was identified in the preoperative holding area and consent confirmed. He was then brought to the operating room where general anesthesia was induced.? He was placed in the low lithotomy position. He was then prepped and draped in the usual sterile fashion. A surgical timeout was conducted and all were in agreement. Access to the bladder was obtained via a 30 degree cystoscope.? Complete cystoscopy was then performed and no concerning bladder masses or lesions were appreciated.? Bilateral ureteral orifices were easily identified and noted to be orthotopic in nature. He was noted to have a widely patent prostatic urethra consistent with a prior robotic simple prostatectomy.? The right ureteral orifice was then cannulated using a 0.035 sensor tip ureteral guidewire and a 5Fr ureteral catheter was advanced over the guidewire and into the distal right ureter.? The guidewire was then removed and a retrograde ureteropyelogram was performed which noted no passage of contrast into the proximal right ureter.? The ureteral guidewire was then readvanced through the ureteral catheter and was unable to be passed proximal to the stone in the mid ureter.? The ureteral catheter was then removed and a semirigid ureteroscope was easily advanced into her right ureter alongside the guidewire and to the level of the stone, which was noted to be severely impacted. A 200 micron laser fiber was then utilized to perform laser lithotripsy.? A severe J-hook was appreciated and multiple stone fragments were noted to be encrusted within the wall of the ureter and part of the ureter was noted to be very thin. The ureteral guidewire was readvanced through the ureteroscope and into the right renal pelvis. The ureteroscope was then removed and the cystoscope was backloaded over the guidewire and advanced into the bladder. A retrograde ureteropyelogram was performed which noted a severe J-hook, however, no contrast extravasation. A 6Fr x multi-length JJ ureteral stent without string was then advanced over the ureteral guidewire.? Upon removal of the guidewire, a good curl was noted in the right renal pelvis and the bladder using fluoroscopy.? The bladder was then drained.? Anesthesia was reversed, he was extubated in the OR and transferred to the PACU in stable condition for recovery. Complications: none Post-operative Condition: stable Disposition: PACU Plan for aftercare: Will obtain a CT KUB in 4 weeks and have him return to Urology clinic to discuss the results. Would plan on needing a second look right ureteroscopy in the future.
[2025-09-16] MEDS: PHENAZOPYRIDINE 100 MG TABLET 200 MG PO (10:01)
[2025-09-16] MEDS: ACETAMINOPHEN 325 MG TABLET 975 MG PO (10:01)
--- NOTE | 2025-09-19 13:58 | SUR.OPER ---
Lithotomy on padded OR bed, head on pillow, arms secured on padded arm boards at <90 degrees abduction. Legs secured in padded yellow fins stirrups.
--- NOTE | 2025-09-19 13:59 | SUR.OPER ---
lithotomy, yellow fin stirups, arm secured on armboard at side, pillow, blanket
== END 2025-09-16 10:36 | disposition home or self-care (01) ==
PROVIDERS: PCP Family Medicine; Referring Provider Urology; Visit Provider Urology
PROC: 0TF68ZZ Fragmentation in Right Ureter, Via Natural or Artificial Opening Endoscopic (ICD-10-PCS; CPT 52353; principal; 2025-09-16 07:45)
DX: N20.1 Calculus of ureter (principal); R33.9 Retention of urine, unspecified
CPT/HCPCS: 52356; 74018; 76000; C2617; J0689; J2405; J2704; J3010; J7120; Q9967